=== PATIENT | female | born 1990 | race African-American/Black ===

== ENCOUNTER 2024-10-03 09:12 | Emergency (ER) | payer OTHER, SELFPAY ==
--- NOTE | ~2024-10-03 | XR_ITS ---
EXAMINATION: XR shoulder RT min 2V DATE: 10/03/2024 11:11 INDICATION: Right shoulder injury post fall TECHNIQUE: AP internally and externally rotated, AP oblique externally rotated and transscapular Y vi ews of the right shoulder were obtained. COMPARISON: None FINDINGS: Normal alignment. No fracture. Glenohumeral joint is normal. Acromioclavicular joint is normal. Smal l anterior subacromial spur. Soft tissues are unremarkable. Right lung volume is small with no airspa ce opacities, pleural effusion or pneumothorax. IMPRESSION: Small anterior subacromial spur. No acute osseous abnormality. Reviewed, dictated and finalized at location A.
--- OUTSIDE RECORDS SUMMARY | 2024-10-03 09:14 | XMS_ITS | Data Portability ---
Author Organization [facility], [id number] Address [address] [place] [address] Assessment No assessment recorded. Plan of Treatment Reminders Order Date Submit Date Provider Last Modified By Organization Details Last Modified Time Details Appointments None recorded. Lab hemoglobin (Hb), fingerstic k, blood 2016 017 slies In-House Results, For Internal Use Only, Do Not Delete/merge, [id number] 12:54:31 Referral None recorded. Procedures None recorded. Surgeries None recorded. Imaging US, transvagin al 2016 017 [email or web address] Not available 10:07:37 Medication Orders Provera 5 mg tablet 2016 017 INTERFACE [id number], [address] [place], [place], [id number], 11:54:37 Patient TargetsNo targets recorded. Patient InstructionsNo instructions recorded. Reason for Referral None Reported. Results Created Date Observation Date Name Description Value Unit Range Abnormal Flag Note LastModifiedBy Organization Detail LastModifiedTime 10/04/1910/03/2016 hemog lobin (Hb), finge rstic k, blood fingerstick hemoglobin 15.4 g/dL 12.0-1 5.0 Not Available In-House Results For Internal Use Only, Do Not Delete/merge, [id number] 10/03/2016 12:02:38 10/11/19 US, trans vagin al No observ ation record ed. slies Not Available 2016 19:32:36 Result Notes None recorded. Problems Name Problem SNOMED Code Status Onset Date Resolution Date Notes Provider Name and Address Organization Details Recorded Time Abnormal vaginal bleeding 076662939 Active 017 Leonie Kneer (TERMED) null, [facility] 7 11:45:57 Problem Notes None recorded. Procedures Surgical History Date Name Laterality Status Provider Name and Address Organization Details Recorded Time 5 Date of Last Pap Smear completed Leonie Galo (TERMED) [facility] 10/03/2016 11:46:33 3 Colposcopy vulva w/biopsy completed Leonieher Galo (TERMED) [facility] 10/03/2016 11:55:51 Imaging Results Imaging Date Name Status LastModified by Organization Details LastModified Time 10/10/2016 US, transvaginal completed slies Informat ion not available 10/11/2016 19:32:36 Procedure Notes None recorded. Medical Equipment None Reported. Allergies No known drug allergies Medications Name Sig Start Date Stop Date Status Note LastModified by Organization Details LastModified Time amoxicillin 500 mg capsule 10/03 completed Not Available Not Available Not Available medroxyprog esterone 10 mg tablet 10/03 completed Not Available Not Available Not Available fluconazole 150 mg tablet 10/03 completed Not Available Not Available Not Available hydrocodone 5 mg-acetamin ophen 325 mg tablet 10/03 completed Not Available Not Available Not Available medroxyprog esterone 5 mg tablet TK 1 T PO QD FOR 14 DAYS active Not Available Not Available No t Available hydrocodone 10 mg-acetamin ophen 325 mg tablet 10/03 completed Not Available Not Available Not Available amoxicillin 875 mg tablet 10/03 completed Not Available Not Available Not Available triamterene 37.5 mg-hydrochl orothiazide 25 mg tablet take 1 tablet by mouth once daily 10/03 completed Not Available Not Available Not Available ibuprofen 600 mg tablet 10/03 completed Not Available Not Available Not Available ondansetron 4 mg disintegrat ing tablet 10/03 completed Not Available Not Available Not Available naproxen 500 mg tablet 10/03 completed Not Available Not Available Not Available Cyclafem 1/35 (28) 1 mg-35 mcg tablet 10/03 completed Not Available Not Available Not Available Afluria [id number] (PF) 45 mcg(15 mcg x 3)/0.5 mL intramuscul ar syringe inject 0.5 millilite r intramusc ularly 10/03 completed Not Available Not Available Not Available Vitals Date Recorded Body weight Body height Body mass index (BMI) Heart rate Systolic blood pressure Diastolic blood pressure Provider Name and Address Organization Details Last Updated DateTime 7 466990. 53 g 167.64 cm 48.1 kg/m2 95 /min 156 mm[Hg] 101 mm[Hg] Leonie Galo (TERMED) [facility] 7 11:45:19 Date Recorded Body height Body weight Body mass index (BMI) Heart rate Systolic blood pressure Diastolic blood pressure Provider Name and Address Organization Details Last Updated DateTime 7 167.64 cm 832911. 12 g 48.3 kg/m2 85 /min 152 mm[Hg] 95 mm[Hg] Leonie Galo (TERMED) [facility] 7 10:36:56 Social History Question Answer Notes LastModified by Organizat ion Details LastModified Time Tobacco Smoking Status Never Smoker Leonie Galo (TERMED) null, [facility] 10/03/2016 11:48:22 What Is Your Level Of Alcohol Consumption? Occasional Information not available 10/03/2016 Are You Blind Or Do You Have Difficulty Seeing? No Information not available 10/04/2016 Is Blood Transfusion Acceptable In An Emergency? Yes Information not available 10/03/2016 What Is Your Level Of Caffeine Consumption? Moderate Information not available 10/03/2016 Are You Currently Employed? Yes [employer] [facility] Information not available 10/03/2016 Are You Deaf Or Do You Have Serious Difficulty Hearing? No Information not available 10/04/2016 What Type Of Diet Are You Following? REGULAR Information not available 10/03/2016 Which Illicit Or Recreational Drugs Have You Used? 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 0 Information not available 10/04/2016 How Many Years Have You Used Illicit Or Recreational Drugs? 0 Information not available 10/04/2016 History Of Domestic Violence No Information not available 10/03/2016 Country Of [facility] Information not available 10/03/2016 Ethnic Background Information not available 10/03/2016 Marital Status Single Informatio n not available 10/03/2016 Performs Monthly Self-breast Exam? Yes Information not available 10/03/2016 Do You Use Protection During Sex? Always Information not available 10/03/2016 Seat Belts Used Routinely Yes Information not available 10/03/2016 Are You Sexually Active? Yes Information not available 10/03/2016 Number Of Sexual Partners 4 Information not available 10/04/2016 Are You Passively Exposed To Smoke? No Information not available 10/03/2016 How Much Tobacco Do You Smoke? No Information not available 10/04/2016 General Stress Level High Information not available 10/03/2016 How Many Years Have You Smoked Tobacco? 0 Information not available 10/04/2016 Do You Have Symptoms Associated With Zika Virus (fever, Rash, Joint Pain, Or Conjunctivitis) ? No Information not available 10/03/2016 Have You Recently (within The Last 12 Weeks, Or During A Current ) Traveled To Or Lived In A Zika-affected Area? No Information not available 10/03/2016 Sex: Unknown Functional Status Question Answer Note LastModified by Organizat ion Details LastModified Time Do you have difficulty walking or climbing stairs? No Information not available 10/04/2016 Urinary incontinence assessment performed? Yes Information not available 10/03/2016 Do you have difficulty doing errands alone? No Information not available 10/04/2016 Do you have difficulty dressing or bathing? No Information not available 10/04/2016 What is your exercise level? Occasional Information not available 10/03/2016 Mental Status Question Answer Note LastModified by Organization D etails LastModified Time Do you have difficulty concentrating, remembering or making decisions? No Information no t available 10/04/2016 Family History Relationship Description Onset Age of this Age Resolved Age Notes LastModified by Organization Details LastModified Time Father Hypertensive disorder hkneer Not available 2016 11:48:03 Father Myocardial infarction hkneer Not available 10/03 11:48:15 Father Hypercholest erolemia mroethling Not available 10/04 10:00:00 Mother Hypertensive disorder hkneer Not available 2016 11:48:03 Mother Myocardial infarction hkneer Not available 10/03 11:48:15 Mother Diabetes mellitus mroethling Not available 10/04 09:59:29 Mother Hypercholest erolemia mroethling Not available 10/04 10:00:00 Sister Disorder of thyroid gland mroethling Not available 10/04 09:59:38 Sister Endometrial carcinoma mroethling Not available 10/04 09:59:48 Medical History Condition Response Psych- Depression Y Weight Management/Obesity Y Neurology- Headaches/Migraines Y Cardiology- High Blood Pressure Y Gynecological History Statement/Question Response HPV Vaccine Completed History of Sexually Transmitted Infectio n N Date of LMP 08/23/2016 History of Dysmenorrhea N Age at Menarche: 9 History of Cervical Dysplasia N Sexually Active Y History of PCOS Y Total lifetime partners Less than 5 History of Recurrent Ovarian Cysts N Date of Last Pap Smear 12/25/2014 Sexual Orientation Heterosexual Current Control Method None History of Abnormal PAP Y History of Endometriosis N History of Fibroids N Obstetrics History GPAL:G 0 P 0 0 0 0 Immunizations Vaccine Type Date Status Note Provider Nam e and Address Organization Details Recorded Time Influenza, split virus, trivalent, preservative 6 completed Leonie Galo (TERMED) null, [facility] 10/03/2016 11:45:37 Tdap 6 completed Sandra Barbosa (TERMED) [facility] 10/04/2016 09:52:18 HPV, unspecified formulation 9 completed Sandra Barbosa (TERMED) [facility] 10/04/2016 09:52:31 Past Encounters Encounter ID Performer Location Encounter Start Date Encounter Closed Date Diagnosis/Indication Diagnosis SNOMED-CT Code Diagnosis ICD10 Code Diagnosis Note [id number] VALERY PALOMINO MD [id number] [address] 10/03/2016 11:39:03 10/03/2016 13:14:07 Body mass index 40+ - severely obese 219616352 Z68.42 Abnormal v aginal bleeding 339973470 N93.9 abnormal uterine bleeding. probably anovulatio n. she has just finished her provera. (she stopped bleeding only 3 days while on provera) she is scheduled for u/s in 1 week. will see if she withdraws to provera. hgb stable. will make decision about bx, more provera etc at u/s next week [id number] [id number] [address] [place] [address] 10/10/2016 10:03:00 10/10/2016 12:11:45 Abnormal uterine bleeding 2435028804 9100 N93.9 probable pcod. has irregular periods, hirsutism, u/s changes. she has tried ocp's before. will have her take provera 5mg for 14 days, starting the 12 th day of her cycle for the next few months. will place on oc's if she requests Health Concerns Section Related Observation LastModified by Organization Detai ls LastModified Time None Recorded Concern Status LastModified by Organization Details LastModified Time None Recorded Advance Directives Directive None Recorded Payers Insurance Date Sequence Insurance Name Policy Number Policy Tavera Covered Member ID Tavera Member ID Guarantor Name 06/19/2018 1 [employer] ([employer]) [id number] Jasmin Moody [id number] Jasmin Moody Notes Date Note Type Note Provider Name and Address Organization Details Recorded Time 10/03/2016 text/html Goals lose weight. 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 began bleeding in july and throughout august. has gone several months without bleeding before VALERY PALOMINO MD [address] [place] [address],[address], [place], [address], [facility] 10/03/2016 12:54:38 10/10/2016 text/html fu for abnormal uterine bleeding VALERY PALOMINO MD [address] [place] [address],[address], [place], [address], [facility] [place] [facility] 10/10/2016 11:54:37 OBGyn Episode No OBEpisode recorded.
[2024-10-03 09:15] VITALS: BP 152/92; PULSE 101; RESP 16; TEMP 36.9; O2SAT 100
--- OUTSIDE RECORDS SUMMARY | 2024-10-03 09:15 | XMS_ITS | Clinical Summary ---
Author Organization [facility] Address [address] [address] Care Team Providers Care Machines Technician Name Role Phone Unavailable Primary Care Provider Unavailabl e Source Comments [facility],non-owned Affiliates and Associated Physician Practices is amultiple site organization consisting of ambulatory clinics and hospital sitesin [place], [place], [place] and [place]. This disclosure is being madepursuant to the Care Everywhere program and may not contain all information available regarding this patient. Last updated 18.[facility] Encounters Date Type Department Care Team Description 08/18/2024 Telephone [facility] Maternal [facility] [address] [place] [address] Suzette Villanueva Appointment from Last 3 Months Social History Tobacco Use Types Packs/Day Years Used Date Smoking Tobacco: Never Assessed Comments Unknown Sex and Gender Information Value Date Recorded Sex Assigned at Not on file Legal Sex Female 10:54 AM CDT Gender Identity Not on file Sexual Orientation Not on file Plan of Treatment Health Maintenance Due Date Last Done Comments PAP SMEAR 1988 HIV SCREENING 07/26/2003 HEPATITIS C SCREENING 07/21/2006 DTAP/TDAP/TD VACCINES (1 - Tdap) 07/26/2007 HEPATITIS B VACCINE (1 of 3 - 19+ 3-dose series) 07/26/2007 COVID-19 VACCINE ( - 2023-2 5 season) 2024 DEPRESSION SCREENING 05/27/2024 INFLUENZA VACCINE (Season Ended) 2025 ZOSTER VACCINE (1 of 2) 2038 HIB VACCINE Aged Out No longer eligi ble based on patient's age to complete this topic HPV VACCINE Aged Out No longer eligi ble based on patient's age to complete this topic MENINGOCOCCAL (Group B) VACC INE SHARED DECISION-MAKING Aged Out No longer eligibl e based on patient's age to complete this topic MENINGOCOCCAL GROUPS A/C/Y/W VACCINE Aged Out No longer eligible b ased on patient's age to complete this topic PNEUMOCOCCAL VACCINE Aged Out No long er eligible based on patient's age to complete this topic Insurance [employer]
--- OUTSIDE RECORDS SUMMARY | 2024-10-03 09:15 | XMS_ITS | Data Portability ---
Author Organization [facility] EMMA Fajardo SHELDON CLOSED Address [address] [facility] [address] [place] [address] Assessment No assessment recorded. Plan of Treatment Reminders Order Date Submit Date Provider Last Modified By Organization Details Last Modified Time Details Appointments None recorded. Lab CT + NG RNA, PCR, unspecifie d specimen 2020 021 [facility], [address] [place] [address], [id number], 1 13:20:56 HIV (1+2) Ab screen, serum 2020 021 [facility], [address] [place] [address], [id number], 13:35:18 hepatitis C Ab, serum 2020 021 [facility], [address] [place] [address], [id number], 08:29:18 hsv (1+2) Ab, serum 2020 021 [facility], [address] [place] [address], [id number], 1 15:11:12 RPR (rapid plasma reagin), serum 2020 021 [facility], [address] [place] [address], [id number], 1 17:40:47 HBsAg (hepatitis B surface Ag), serum 2020 021 [facility], [address] [place] [address], [id number], 1 08:29:20 magnesium, QN, serum or plasma 2020 021 [facility], [address] [place] [address], [id number], 1 20:15:15 CBC w/ auto diff 2020 021 [facility], [address] [place] [address], [id number], 20:24:12 CMP, serum or plasma 2020 021 [facility], [address] [place] [address], [id number], 1 20:15:16 iron, serum 2020 021 [facility], [address] [place] [address], [id number], 1 20:15:14 vitamin D, 25-hydroxy , total, serum 2020 021 [facility], [address] [place] [address], [id number], 1 08:29:21 urinalysis , dipstick 2019 020 [facility], [address] [place], [address], 0 15:23:52 microalbum in, urine 2019 020 [facility], [address] [facility] [place], [address], 0 15:23:52 vitamin D, 25-hydroxy , total, serum 2019 [facility], [address] [place] [address], [id number], 0 20:30:26 CMP, serum or plasma 2019 [facility], [address] [place] [address], [id number], 0 20:13:06 lipid panel, serum 2019 [facility], [address] [place] [address], [id number], 0 20:13:05 CBC w/ auto diff 2019 [facility], [address] [place] [address], [id number], 0 20:32:46 TSH, serum or plasma 2019 [facility], [address] [place] [address], [id number], 0 20:27:48 Referral physical therapist referral 2020 [email or web address] Not available 08:39:36 Procedures None recorded. Surgeries None recorded. Imaging None recorded. Medication Orders citalopram 20 mg tablet 2020 [facility], [address], [address], [place], [place], [id number], 1 16:10:19 ergocalcif terrence (vitamin D2) 1,250 mcg (50,000 unit) capsule 2020 [facility], [address], [address], [place], [place], [id number], 1 16:10:24 metoprolol tartrate 25 mg tablet 2020 021 [facility], [address], [address], [place], [place], [id number], 1 16:10:20 cyclobenza velvet 10 mg tablet 2020 021 [facility], [address], [address], [place], [place], [id number], 1 16:10:23 Medrol (Otf) 4 mg tablets in a dose pack 2020 021 [facility], [address], [address], [place], [place], [id number], 1 16:10:21 ProAir HFA 90 mcg/actuat ion aerosol inhaler [address] [id number], [address], [id number], 1 15:55:33 Celexa 20 mg tablet 2019 020 [id number], [address] [place], [place], [id number], 0 14:37:06 triamcinol one acetonide 0.5 % topical cream [email or web address] [id number], [address] [place], [place], [id number], 0 09:43:57 Celexa 20 mg tablet 2019 020 [id number], [address], [place], [id number], 0 15:24:19 Celexa 20 mg tablet 2019 020 [facility] #[id number], [address] , [place], [place], [id number], 0 15:32:52 Patient TargetsNo targets recorded. Patient Instructions Encounter Date Encounter Id Patient Instructions Last Modified By Organization Details Last Modified Time 03/03/2020 [id number] body mass index: care instructions emillay Not available 03/03/2020 15:32:23 body mass index information emillay Not available 03/03/2020 15:32:23 BMI - ADULT emillay Not available 12/2019 15:32:24 advised to lose weight emillay Not available 03/03/2020 15:32:23 dash diet: care instructions emillay Not available 03/03/2020 15:32:23 high blood pressure: care instructions emillay Not available 03/03/2020 15:32:23 learning about high blood pressure emillay Not available 03/03/2020 15:32:23 05/04/2020 [id number] advised patient and members of his/her household to isolate for 10 days past positive test. contact the office if he/she begins to have worsening symptoms of COVID-19 such as shortness of air, high fever, chest pain Advised: 325mg ASA qd x 4 weeks pepcid 20mg qd x 4 weeks zinc 100mg qd x 4 weeks vitamin c 500mg bid x 4 weeks iron 65mg qd x 4 weeks tylenol for fever, aches prn obtain pulse ox and begin watching saturation at home. this should be above 90 at all times. if below 90 pleaes call right away or go to ER. emillay Not available 05/04/2020 14:35:42 spent 25 minutes with patient today with more than 50% of the encounter spent in counseling regarding information documented in my assessment and plan above. emillay Not available 05/04/2020 14:36:47 Reason for Referral Physical Therapist Referral for Left-sided piriformis syndrome Referring Physician: Milly Louis, Pain Management, Encounter Date: 09/27/2020 Results Created Date Observation Date Name Description Value Unit Range Abnormal Flag Note LastModifiedBy Organization Detail LastModifiedTime 03/03/20 20 03/03/2020 lipid panel , serum HDL cholesterol 37 mg/dL 66-242 low Not Available [facility] [address] [place] [address], [id number], 03/03/2020 20:13:05 03/03/20 20 03/03/2020 lipid panel , serum triglyceride s 94 mg/dL 0-149 normal TRIGL YCERI DE RANGE S JONATAN L: < 150 BORDE RLINE HIGH: 150 - 199 HIGH: 200 - 499 VERY HIGH: > OR = 500 Not Available [facility] [address] [place] [address], [id number], 03/03/2020 20:13:05 03/03/20 20 03/03/2020 lipid panel , serum cholesterol 160 mg/dL 0-199 normal CRISTINA STERO L (TOTA L) RANGE S AUNG ABLE: < 200 BORDE RLINE : 200 - 239 HIGHE R RISK: > 239 Not Available [facility] [address] [place] [address], [id number], 03/03/2020 20:13:05 03/03/20 20 03/03/2020 lipid panel , serum LDL cholesterol 104 mg/dL _(shyla c) 0-99 high LDL CRISTINA STERO L RANGE S OPTIM AL: < 100 NEAR/ ABOVE OPTIM AL: 100 - 129 BORDE RLINE HIGH: 130 - 159 HIGH: 160 - 189 VERY HIGH: > OR = 190 Not Available [facility] [address] [place] [address], [id number], 03/03/2020 20:13:05 03/03/2003/03/2020 CMP, serum or plasm a glucose 88 mg/dL 74-100 normal Not Available [facility] [address] [place] [address], [id number], 03/03/2020 20:13:06 03/03/20 20 03/03/2020 CMP, serum or plasm a blood urea nitrogen 11 mg/dL 6-20 normal Not Available [facility] [address] [place] [address], [address], 03/03/2020 20:13:06 03/03/20 20 03/03/2020 CMP, serum or plasm a creatinine 0.91 mg/dL 0.50-0 .95 normal Not Available [facility] [address] [place] [address], [address], 03/03/2020 20:13:06 03/03/20 20 03/03/2020 CMP, serum or plasm a BUN/creatini ne ratio 12 (calc ) 10-20 normal Not Available [facility] [address] [place] [address], [address], 03/03/2020 20:13:06 03/03/20 20 03/03/2020 CMP, serum or plasm a sodium 138 mmol/ L 136-14 5 normal Not Available [facility] [address] [place] [address], [address], 03/03/2020 20:13:06 03/03/20 20 03/03/2020 CMP, serum or plasm a potassium 4.3 mmol/ L 3.4-5. 0 normal Not Available [facility] [address] [place] [address], [address], 03/03/2020 20:13:06 03/03/20 20 03/03/2020 CMP, serum or plasm a chloride 104 mmol/ L 98-107 normal Not Available [facility] [address] [place] [address], [address], 03/03/2020 20:13:06 03/03/20 20 03/03/2020 CMP, serum or plasm a carbon dioxide 22 mmol/ L 20-32 normal Not Available [facility] [address] [place] [address], [address], 03/03/2020 20:13:06 03/03/20 20 03/03/2020 CMP, serum or plasm a anion gap 12 (calc ) 7-25 normal Not Available [facility] [address] [place] [address], [address], 03/03/2020 20:13:06 03/03/20 20 03/03/2020 CMP, serum or plasm a calcium 10.0 mg/dL 8.6-10 .2 normal Not Available [facility] [address] [place] [address], [address], 03/03/2020 20:13:06 03/03/20 20 03/03/2020 CMP, serum or plasm a total protein 8.1 g/dL 6.4-8. 3 normal Not Available [facility] [address] [place] [address], [address], 03/03/2020 20:13:06 03/03/20 20 03/03/2020 CMP, serum or plasm a albumin 4.7 g/dL 3.5-5. 2 normal Not Available [facility] [address] [place] [address], [address], 03/03/2020 20:13:06 03/03/20 20 03/03/2020 CMP, serum or plasm a globulin 3.4 g/dL_ (calc ) 1.5-4. 5 normal Not Available [facility] [address] [place] [address], [address], 03/03/2020 20:13:06 03/03/20 20 03/03/2020 CMP, serum or plasm a albumin/glob ulin ratio 1.4 (calc ) 1.1-2. 5 normal Not Available [facility] [address] [place] [address], [address], 03/03/2020 20:13:06 03/03/20 20 03/03/2020 CMP, serum or plasm a bilirubin, total 0.7 mg/dL 0.1-1. 2 normal Not Available [facility] [address] [place] [address], [address], 03/03/2020 20:13:06 03/03/20 20 03/03/2020 CMP, serum or plasm a alkaline phosphatase 52 U/L 35-105 normal Not Available [facility] [address] [place] [address], [address], 03/03/2020 20:13:06 03/03/20 20 03/03/2020 CMP, serum or plasm a AST 18 U/L 0-32 normal Not Available [facility] [address] [place] [address], [address], 03/03/2020 20:13:06 03/03/20 20 03/03/2020 CMP, serum or plasm a ALT 17 U/L 0-33 normal Not Available [facility] [address] [place] [address], [address], 03/03/2020 20:13:06 03/03/20 20 03/03/2020 CMP, serum or plasm a GFR 97 >= 60 normal Not Available [facility] [address] [place] [address], [address], 03/03/2020 20:13:06 03/03/20 20 03/03/2020 CMP, serum or plasm a GFR non- 84 >= 60 normal NOT E NEW calcu latio n for GFR is based on the Natio nal Kidne y Found ation CKD-E PI equat ion and allow s for repor ting GFR value s great er than 60 mL/mi n/1.7 3 m2. This calcu latio n has not been valid ated for patie nts less than 18 yrs., pregn ant women and Hispa nics. Chron ic kidne y disea se is defin ed as kidne y damag e or GFR less than 60 mL/mi n/1.7 3 m2 for 3 month s or longe r. Not Available [facility] [address] [place] [address], [address], 03/03/2020 20:13:06 03/03/20 20 03/03/2020 TSH, serum or plasm a TSH 1.540 uIU/m L 0.290- 5.500 normal Not Available [facility] [address] [place] [address], [address], 03/03/2020 20:27:48 1003/03/2020 vitam in D, 25-hy droxy , total , serum vitamin D 25-oh, total 17 NG/mL >=30 NG/mL abnormal Not Available [facility] [address] [place] [address], [address], 03/03/2020 20:30:26 03/03/20 20 03/03/2020 CBC w/ auto diff white blood cells 8.6 K/uL 3.8-10 .8 normal Not Available [facility] [address] [place] [address], [address], 03/03/2020 20:32:46 03/03/20 20 03/03/2020 CBC w/ auto diff red blood cells 4.78 M/uL 3.80-5 .20 normal Not Available [facility] [address] [place] [address], [address], 03/03/2020 20:32:46 03/03/20 20 03/03/2020 CBC w/ auto diff hemoglobin 13.3 g/dL 12.0-1 6.0 normal Not Available [facility] [address] [place] [address], [address], 03/03/2020 20:32:46 03/03/20 20 03/03/2020 CBC w/ auto diff hematocrit 40.1 % 35.0-4 7.0 normal Not Available [facility] [address] [place] [address], [address], 03/03/2020 20:32:46 03/03/2003/03/2020 CBC w/ auto diff MCV 84 fL 80-100 normal Not Available [facility] [address] [place] [address], [address], 03/03/2020 20:32:46 03/03/20 20 03/03/2020 CBC w/ auto diff MCH 28 pg 26-35 normal Not Available [facility] [address] [place] [address], [address], 03/03/2020 20:32:46 03/03/20 20 03/03/2020 CBC w/ auto diff MCHC 33 g/dL 32-36 normal Not Available [facility] [address] [place] [address], [address], 03/03/2020 20:32:46 03/03/20 20 03/03/2020 CBC w/ auto diff RDW 12.5 % 11.0-1 5.0 normal Not Available [facility] [address] [place] [address], [address], 03/03/2020 20:32:46 03/03/20 20 03/03/2020 CBC w/ auto diff MPV 7.7 fL 6.2-10 .5 normal Not Available [facility] [address] [place] [address], [address], 03/03/2020 20:32:46 03/03/20 20 03/03/2020 CBC w/ auto diff platelet count 350 K/uL 130-40 0 normal Not Available [facility] [address] [place] [address], [address], 03/03/2020 20:32:46 03/03/20 20 03/03/2020 CBC w/ auto diff neutrophil,a bsolute 5.7 K/uL 1.6-8. 4 normal Not Available [facility] [address] [place] [address], [address], 03/03/2020 20:32:46 03/03/20 20 03/03/2020 CBC w/ auto diff lymphocyte,a bsolute 2.4 K/uL 0.4-5. 1 normal Not Available [facility] [address] [place] [address], [address], 03/03/2020 20:32:46 03/03/20 20 03/03/2020 CBC w/ auto diff monocyte,abs olute 0.4 K/uL 0.0-1. 2 normal Not Available [facility] [address] [place] [address], [address], 03/03/2020 20:32:46 03/03/20 20 03/03/2020 CBC w/ auto diff eosinophil,a bsolute 0.0 K/uL 0.0-0. 8 normal Not Available [facility] [address] [place] [address], [address], 03/03/2020 20:32:46 03/03/20 20 03/03/2020 CBC w/ auto diff basophil,abs olute 0.1 K/uL 0.0-0. 3 normal Not Available [facility] [address] [place] [address], [address], 03/03/2020 20:32:46 03/03/20 20 03/03/2020 CBC w/ auto diff % neutrophils 66.0 % 42.0-7 8.0 normal Not Available [facility] [address] [place] [address], [address], 03/03/2020 20:32:46 03/03/20 20 03/03/2020 CBC w/ auto diff % lymphocytes 27.5 % 11.0-4 7.0 normal Not Available [facility] [address] [place] [address], [address], 03/03/2020 20:32:46 03/03/20 20 03/03/2020 CBC w/ auto diff % monocytes 5.0 % 0.0-11 .0 normal Not Available [facility] [address] [place] [address], [address], 03/03/2020 20:32:46 03/03/20 20 03/03/2020 CBC w/ auto diff % eosinophils 0.4 % 0.0-7. 0 normal Not Available [facility] [address] [place] [address], [address], 03/03/2020 20:32:46 03/03/20 20 03/03/2020 CBC w/ auto diff % basophils 1.1 % 0.0-3. 0 normal Not Available [facility] [address] [place] [address], [address], 03/03/2020 20:32:46 03/03/20 20 03/03/2020 CBC w/ auto diff nucleated red cells 0.0 % 0.0-0. 9 normal Not Available [facility] [address] [place] [address], [address], 03/03/2020 20:32:46 03/03/20 20 03/03/2020 CBC w/ auto diff nucleated RBCs, absolute 0.00 K/uL not estab. normal Not Available [facility] [address] [place], [address], 03/03/2020 20:32:46 04/05/20 20 04/05/2020 micro album in, urine Unknown Analyte 50 H Not Available [address], [place], [address], 04/05/2020 15:04:53 04/05/20 20 04/05/2020 micro album in, urine Unknown Analyte mg/L Not Available [address], [place], [address], 04/05/2020 15:04:53 04/05/20 20 04/05/2020 micro album in, urine Unknown Analyte Negati ve-20 mg/L Not Available [address], [place], [address], 04/05/2020 15:04:53 04/05/20 20 04/05/2020 urina lysis , dipst ick Unknown Analyte Yellow Not Available [address], [place], [address], 04/05/2020 15:04:38 04/05/20 20 04/05/2020 urina lysis , dipst ick Unknown Analyte Clear Not Available [address], [place], [address], 04/05/2020 15:04:38 04/05/20 20 04/05/2020 urina lysis , dipst ick Unknown Analyte 1.020 Not Available [address], [place], [address], 04/05/2020 15:04:38 04/05/20 20 04/05/2020 urina lysis , dipst ick Unknown Analyte 5.0 Not Available [address], [place], [address], 04/05/2020 15:04:38 04/05/20 20 04/05/2020 urina lysis , dipst ick Unknown Analyte 500 Sabina/ul (++) Not Available [address], [place], [address], 04/05/2020 15:04:38 04/05/20 20 04/05/2020 urina lysis , dipst ick Unknown Analyte Negati ve Not Available [address], [place], [address], 04/05/2020 15:04:38 04/05/20 20 04/05/2020 urina lysis , dipst ick Unknown Analyte Trace Not Available [address], [place], [address], 04/05/2020 15:04:38 04/05/20 20 04/05/2020 urina lysis , dipst ick Unknown Analyte Normal Not Available [address], [place], [address], 04/05/2020 15:04:38 04/05/20 20 04/05/2020 urina lysis , dipst ick Unknown Analyte Negati ve Not Available [address], [place], [address], 04/05/2020 15:04:38 04/05/20 20 04/05/2020 urina lysis , dipst ick Unknown Analyte Normal Not Available [address], [place], [address], 04/05/2020 15:04:38 04/05/20 20 04/05/2020 urina lysis , dipst ick Unknown Analyte 1 mg/dl (+) Not Available [address], [place], [address], 04/05/2020 15:04:38 04/05/20 20 04/05/2020 urina lysis , dipst ick Unknown Analyte 250 Greg/ul Not Available [address] , [place], [address], 04/05/2020 15:04:38 04/05/20 20 04/05/2020 urina lysis , dipst ick Unknown Analyte Clean Catch Not Available [address], [place], [address], 04/05/2020 15:04:38 04/05/20 20 04/05/2020 urina lysis , dipst ick Unknown Analyte Automa taina Not Available [address], [place], [address], 04/05/2020 15:04:38 09/28/19 21 09/27/2020 iron, serum iron 59 ug/dL 37-145 normal Not Available [facility] [address] [place] [address], [address], 09/27/2020 20:15:14 09/28/19 21 09/27/2020 magne sium, QN, serum or plasm a magnesium 1.9 mg/dL 1.6-2. 6 normal Not Available [facility] [address] [place] [address], [address], 09/27/2020 20:15:15 09/28/19 21 09/27/2020 CMP, serum or plasm a glucose 95 mg/dL 74-100 normal Not Available [facility] [address] [place] [address], [address], 09/27/2020 20:15:16 09/28/19 21 09/27/2020 CMP, serum or plasm a blood urea nitrogen 11 mg/dL 6-20 normal Not Available [facility] [address] [place] [address], [address], 09/27/2020 20:15:16 09/28/19 21 09/27/2020 CMP, serum or plasm a creatinine 0.86 mg/dL 0.50-0 .90 normal Not Available [facility] [address] [place] [address], [address], 09/27/2020 20:15:16 09/28/19 21 09/27/2020 CMP, serum or plasm a BUN/creatini ne ratio 13 (calc ) 10-20 normal Not Available [facility] [address] [place] [address], [address], 09/27/2020 20:15:16 09/28/19 21 09/27/2020 CMP, serum or plasm a sodium 140 mmol/ L 136-14 5 normal Not Available [facility] [address] [place] [address], [address], 09/27/2020 20:15:16 09/28/19 21 09/27/2020 CMP, serum or plasm a potassium 4.2 mmol/ L 3.4-5. 0 normal Not Available [facility] [address] [place] [address], [address], 09/27/2020 20:15:16 09/28/19 21 09/27/2020 CMP, serum or plasm a chloride 104 mmol/ L 98-107 normal Not Available [facility] [address] [place] [address], [address], 09/27/2020 20:15:16 09/28/19 21 09/27/2020 CMP, serum or plasm a carbon dioxide 26 mmol/ L 22-29 normal Not Available [facility] [address] [place] [address], [address], 09/27/2020 20:15:16 09/28/19 21 09/27/2020 CMP, serum or plasm a anion gap 10 (calc ) 7-25 normal Not Available [facility] [address] [place] [address], [address], 09/27/2020 20:15:16 09/28/19 21 09/27/2020 CMP, serum or plasm a calcium 9.4 mg/dL 8.6-10 .2 normal Not Available [facility] [address] [place] [address], [address], 09/27/2020 20:15:16 09/28/19 21 09/27/2020 CMP, serum or plasm a total protein 7.8 g/dL 6.4-8. 3 normal Not Available [facility] [address] [place] [address], [address], 09/27/2020 20:15:16 09/28/19 21 09/27/2020 CMP, serum or plasm a albumin 4.6 g/dL 3.5-5. 2 normal Not Available [facility] [address] [place] [address], [address], 09/27/2020 20:15:16 09/28/19 21 09/27/2020 CMP, serum or plasm a globulin 3.2 g/dL_ (calc ) 1.5-4. 5 normal Not Available [facility] [address] [place] [address], [address], 09/27/2020 20:15:16 09/28/19 21 09/27/2020 CMP, serum or plasm a albumin/glob ulin ratio 1.4 (calc ) 1.1-2. 5 normal Not Available [facility] [address] [place] [address], [address], 09/27/2020 20:15:16 09/28/19 21 09/27/2020 CMP, serum or plasm a bilirubin, total 0.4 mg/dL 0.1-1. 2 normal Not Available [facility] [address] [place] [address], [address], 09/27/2020 20:15:16 09/28/19 21 09/27/2020 CMP, serum or plasm a alkaline phosphatase 60 U/L 35-104 normal Not Available [facility] [address] [place] [address], [address], 09/27/2020 20:15:16 09/28/19 21 09/27/2020 CMP, serum or plasm a AST 25 U/L 0-32 normal Not Available [facility] [address] [place] [address], [address], 09/27/2020 20:15:16 09/28/19 21 09/27/2020 CMP, serum or plasm a ALT 24 U/L 0-33 normal Not Available [facility] [address] [place] [address], [address], 09/27/2020 20:15:16 09/28/19 21 09/27/2020 CMP, serum or plasm a GFR 103 >= 60 normal Not Available [facility] [address] [place] [address], [address], 09/27/2020 20:15:16 09/28/1909/27/2020 CMP, serum or plasm a GFR non- 89 >= 60 normal NOT E Chron ic kidne y disea se is defin ed as kidne y damag e for more than 3 month s or a GFR less than 60 mL/mi n/1.7 3 m2 for great er than 3 month s. This calcu latio n has not been valid ated in pregn ant women . For pedia tric patie nts refer to [email or web address] :[email or web address] [email or web address] [email or web address] rg/pr ofess ional s/KDO QI/gf r_cal culat orPed Natio nal Kidne y Found ation Not Available [facility] [address] [place] [address], [phone], 09/27/2020 20:15:16 09/28/19 21 09/27/2020 CBC w/ auto diff white blood cells 7.5 K/uL 3.8-10 .8 normal Not Available [facility] [address] [place] [address], [phone], 09/27/2020 20:24:12 09/28/19 21 09/27/2020 CBC w/ auto diff red blood cells 4.66 M/uL 3.80-5 .20 normal Not Available [facility] [address] [place] [address], [phone], 09/27/2020 20:24:12 09/28/19 21 09/27/2020 CBC w/ auto diff hemoglobin 13.0 g/dL 12.0-1 6.0 normal Not Available [facility] [address] [place] [address], [phone], 09/27/2020 20:24:12 09/28/19 21 09/27/2020 CBC w/ auto diff hematocrit 38.6 % 35.0-4 7.0 normal Not Available [facility] [address] [place] [address], [address], 09/27/2020 20:24:12 09/28/19 21 09/27/2020 CBC w/ auto diff MCV 83 fL 80-100 normal Not Available [facility] [address] [place] [address], [phone], 09/27/2020 20:24:12 09/28/19 21 09/27/2020 CBC w/ auto diff MCH 28 pg 26-35 normal Not Available [facility] [address] [place] [address], [address], 09/27/2020 20:24:12 09/28/19 21 09/27/2020 CBC w/ auto diff MCHC 34 g/dL 32-36 normal Not Available [facility] [address] [place] [address], [address], 09/27/2020 20:24:12 09/28/19 21 09/27/2020 CBC w/ auto diff RDW 12.7 % 11.0-1 5.0 normal Not Available [facility] [address] [place] [address], [address], 09/27/2020 20:24:12 09/28/19 21 09/27/2020 CBC w/ auto diff MPV 7.3 fL 6.2-10 .5 normal Not Available [facility] [address] [place] [address], [address], 09/27/2020 20:24:12 09/28/19 21 09/27/2020 CBC w/ auto diff platelet count 360 K/uL 130-40 0 normal Not Available [facility] [address] [place] [address], [address], 09/27/2020 20:24:12 09/28/19 21 09/27/2020 CBC w/ auto diff neutrophil,a bsolute 5.3 K/uL 1.6-8. 4 normal Not Available [facility] [address] [place] [address], [address], 09/27/2020 20:24:12 09/28/19 21 09/27/2020 CBC w/ auto diff lymphocyte,a bsolute 1.7 K/uL 0.4-5. 1 normal Not Available [facility] [address] [place] [address], [address], 09/27/2020 20:24:12 09/28/19 21 09/27/2020 CBC w/ auto diff monocyte,abs olute 0.4 K/uL 0.0-1. 2 normal Not Available [facility] [address] [place] [address], [address], 09/27/2020 20:24:12 09/28/19 21 09/27/2020 CBC w/ auto diff eosinophil,a bsolute 0.1 K/uL 0.0-0. 8 normal Not Available [facility] [address] [place] [address], [address], 09/27/2020 20:24:12 09/28/19 21 09/27/2020 CBC w/ auto diff basophil,abs olute 0.0 K/uL 0.0-0. 3 normal Not Available [facility] [address] [place] [address], [address], 09/27/2020 20:24:12 09/28/19 21 09/27/2020 CBC w/ auto diff % neutrophils 70.3 % 42.0-7 8.0 normal Not Available [facility] [address] [place] [address], [address], 09/27/2020 20:24:12 09/28/19 21 09/27/2020 CBC w/ auto diff % lymphocytes 23.0 % 11.0-4 7.0 normal Not Available [facility] [address] [place] [address], [address], 09/27/2020 20:24:12 09/28/19 21 09/27/2020 CBC w/ auto diff % monocytes 5.5 % 0.0-11 .0 normal Not Available [facility] [address] [place] [address], [address], 09/27/2020 20:24:12 09/28/19 21 09/27/2020 CBC w/ auto diff % eosinophils 0.9 % 0.0-7. 0 normal Not Available [facility] [address] [place] [address], [address], 09/27/2020 20:24:12 09/28/19 21 09/27/2020 CBC w/ auto diff % basophils 0.3 % 0.0-3. 0 normal Not Available [facility] [address] [place] [address], [address], 09/27/2020 20:24:12 09/28/19 21 09/27/2020 CBC w/ auto diff nucleated red cells 0.0 % 0.0-0. 9 normal Not Available [facility] [address] [place] [address], [address], 09/27/2020 20:24:12 09/28/19 21 09/27/2020 CBC w/ auto diff nucleated RBCs, absolute 0.00 K/uL not estab. normal Not Available [facility] [address] [place] [address], [address], 09/27/2020 20:24:12 09/28/19 21 09/27/2020 hepat itis C Ab, serum hcab, reflex viral RNA qt Nonrea ctive non-re active normal Antib odies to HCV were not detec taina; does not exclu de the possi bilit y of expos ure to HCV. Not Available [facility] [address] [place] [address], [address], 09/28/2020 08:29:18 09/28/1909/27/2020 HBsAg (hepa titis B surfa ce Ag), serum hepatitis B surface Ag Nonrea ctive non-re active normal Not Available [facility] [address] [place] [address], [address], 09/28/2020 08:29:20 09/28/19 21 09/27/2020 vitam in D, 25-hy droxy , total , serum vitamin D 25-oh, total 25 NG/mL >=30 NG/mL abnormal Not Available [facility] [address] [place] [address], [address], 09/28/2020 08:29:21 09/28/19 21 09/28/2020 HIV (1+2) Ab scree n, serum HIV screen NON-RE ACTIVE non-re active normal HIV-1 antig en and HIV-1 /HIV- 2 antib odies were not detec taina. There is no labor atory evide nce of HIV infec tion. PLEAS E NOTE: This infor matio n has been discl osed to you from recor ds whose confi denti ality may be prote cted by state law. If your state requi res such prote ction , then the state law prohi bits you from ignacio holland any furth er discl osure of the infor matio n witho ut the speci fic writt en conse nt of the perso n to whom it perta ins, or as other lee permi tted by law. A gener al autho rizat ion for the relea se of medic al or other infor matio n is NOT suffi cient for this purpo se. For addit ional infor matio n pleas e refer to http: //[facility] catnoemy n.que stdia gnost ics.c om/fa q/FAQ 106 (This link is being provi ded for infor matio nal/ educa royal l purpo ses only. ) The perfo rmanc e of this assay has not been clini jessie valid ated in patie nts less than 2 years old. TEST PERFO RMED AT: [facility] [place] [address] [place], [place] [id number] BRIANNA Parra MD Not Available [facility] [address] [place], [address], 09/28/2020 13:35:18 09/28/19 21 09/28/2020 hsv (1+2) Ab, serum hsv 1 IgG 38.80 index high Not Available [facility] [address] [place], [address], 09/29/2020 15:01:23 09/28/19 21 09/28/2020 hsv (1+2) Ab, serum hsv 2 IgG <0.90 index normal Index Inter preta tion ----- ----- ----- ---- <0.90 Negat kunal 0.90- 1.09 Equiv ocal >1.09 Posit kunal This assay utili zes recom binan t type- speci fic antig ens to diffe renti ate HSV-1 from HSV-2 infec tions . A posit kunal resul t canno t disti nguis h betwe en recen t and past infec tion. If recen t HSV infec tion is suspe cted but the resul ts are negat kunal or equiv ocal, the assay shoul d be repea taina in 4-6 weeks . The perfo rmanc e mikala cteri stics of the assay have not been estab lishe d for pedia tric popul ation s, immun ocomp romis ed patie nts, or neona layla scree jewel. TEST PERFO RMED AT: [facility] [address] [place] [address] BRIANNA Parra MD Not Available [facility] [address] [place] [address], [address], 09/29/2020 15:01:23 09/28/19 21 09/29/2020 hsv (1+2) Ab, serum hsv 1 IgM NEGATI VE negati ve normal Not Available [facility] [address] [place] [address], [address], 09/29/2020 15:01:23 09/28/19 21 09/29/2020 hsv (1+2) Ab, serum hsv 2 IgM NEGATI VE negati ve normal The IFA proce dure for measu ring IgM antib odies to HSV 1 and HSV 2 detec ts both type- commo n and type- speci fic HSV antib odies . Thus, IgM react ivity to both HSV 1 and HSV 2 may repre sent cross -reac tive HSV antib odies rathe r than expos ure to both HSV 1 and HSV 2. This assay was devel oped and its perfo rmanc e mikala cteri stics have been deter mined by [facility]. Perfo rmanc e mikala cteri stics refer to the alon tical perfo rmanc e of the test. TEST PERFO RMED AT: [facility] [address] [place] [address] BRIANNA Parra MD Not Available [facility] [address] [place] [address], [address], 09/29/2020 15:01:23 09/28/19 21 09/28/2020 RPR (rapi d plasm a reagi n), serum RPR, reflex titer NON-RE ACTIVE non-re active normal TEST PERFO RMED AT: [facility] [place] [address] [place] [address] BRIANNA Parra MD Not Available [facility] [address] [place] [address], [address], 09/28/2020 17:40:47 09/28/19 21 09/29/2020 CT + NG RNA, PCR, unspe cifie d speci men chlamydia trachomatis NOT DETECT ED not detect ed normal Not Available [facility] [address] [place] [address], [address], 09/29/2020 13:20:56 09/28/19 21 09/29/2020 CT + NG RNA, PCR, unspe cifie d speci men N. gonorrhoeae NOT DETECT ED not detect ed normal Not Available [facility] [address] [place] [address], [address], 09/29/2020 13:20:56 09/28/19 21 09/29/2020 CT + NG RNA, PCR, unspe cifie d speci men comment SEE BELOW normal The alon tical perfo rmanc e mikala cteri stics of this assay , when used to test SureP ath(T M) speci mens have been deter mined by [facility]. The modif icati ons have not been clear ed or appro tawana by the FDA. This assay has been valid ated pursu ant to the CLIA regul ation s and is used for clini shyla purpo ses. For addit ional infor leander hogan e refer to https ://ed ucati on.qu anastasiya Sassors. com/f aq/FA Q154 (This link is being provi ded for infor richard de leon/ [place] page only. ) TEST PERFO RMED AT: [facility] [address] [facility] [place] [address] BRIANNA Parra MD Not Available [facility] [address] [place] [address], [address], 09/29/2020 13:20:56 01/03/20 21 01/02/2021 VITAM IN D 25-OH vitamin D 25-oh, total 24 NG/mL >=30 NG/mL abnormal Not Available [facility] [address] [place] [address], [address], 01/02/2021 20:35:03 Result Notes None recorded. Problems Name Problem SNOMED Code Status Onset Date Resolution Date Notes Provider Name and Address Organization Details Recorded Time Vitamin D deficiency 73719273 Active 021 MILLY LOUIS PA-C [address] [place] [address], [address], [facility] 15:53:30 Mixed anxiety and depressive disorder 131396345 Active 021 MILLY LOUIS PA-C [address] [place] [address], [address], [facility] 15:53:33 Polycystic ovary syndrome 234592547 Active 021 MILLY LOUIS PA-C [address] [place] [address], [address], [facility] 15:53:40 Problem Notes None recorded. Procedures Surgical History Date Name Laterality Status Provider Name and Address Organization Details Recorded Time [place] Teeth Extraction completed Little Lunajerald [facility] 03/03/2020 15:45:17 Imaging Results None recorded. Procedure Notes None recorded. Medical Equipment None Reported. Allergies Allergen ID Allergen Name Allergen Category Reaction Reaction Severity Criticality Documentation Date Start Date Code Code System Note Provider Name and Address Organization Details Recorded Time 440809 lisinopri l medicatio n angioedem a severe Not available 03/03/2020 12773 RxNorm MILLY LOUIS PA-C [address] [place], [address], [facility] 0 15:18:34 336420 Vaccine product containin g only Influenza virus antigen (medicina l product) medicatio n Not available Not available Not available 05/11/2020 39731 61864 105 SNOMED faint ing, diaph oresi s MILLY LOUIS PA-C [address] [place], [address], [facility] 2 14:21:17 Medications Name Sig Start Date Stop Date Status Note LastModified by Organization Details LastModified Time cyclobenz aprine 10 mg tablet Take 1 tablet 3 times a day by oral route. 2020 active Not Available Not Available Not Avai lable Multiple Vitamin capsule Daily active Duration : 30 days;Cirilo quency: daily;Me dication Descript ion: multivit erazo; Dosage:1 ; Route:or al; refills: 3; Quantity :100 capsule Not Available Not Available Not Available triamcino lone acetonide 0.5 % topical cream APPLY A THIN LAYER TO THE AFFECTED AREA(S) BY TOPICAL ROUTE 2 TIMES PER DAY for no longer than 2 weeks 05/04 completed Not Available Not Available Not Available Medrol (Otf) 4 mg tablets in a dose pack Take 1 dose pk by oral route. 2020 active Not Available Not Available Not Avai lable amlodipin e 5 mg tablet Daily 03/03 completed Frequenc y: daily;Me dication Descript ion: amlodipi ne; Route:or al; refills: 0 Not Available Not Available Not Available citalopra m 20 mg tablet TAKE 1 TABLET BY MOUTH EVERY DAY due appt [phone] active Not Available Not Available Not Avai lable Depo-Prov era 150 mg/mL intramusc ular suspensio n Inject 1 mL every 3 months by intramus cular route. 05/04 completed Not Available Not Available Not Available hydrochlo rothiazid e 12.5 mg capsule Daily 03/03 completed Duration : 10 days;Cirilo quency: daily;Me dication Descript ion: hydrochl orothiaz marizol; Route:or al; refills: 0; Quantity :30 Not Available Not Available Not Available ergocalci ferol (vitamin D2) 1,250 mcg (50,000 unit) capsule TAKE 1 CAPSULE BY MOUTH EVERY WEEK 2020 active Not Available Not Available Not Avai lable metoprolo l tartrate 25 mg tablet Take 1 tablet twice a day by oral route. 2020 active Not Available Not Available Not Avai lable vitamin B complex Daily 03/03 completed Frequenc y: daily;Me dication Descript ion: multivit erazo; refills: 0 Not Available Not Available Not Available ProAir HFA 90 mcg/actua tion aerosol inhaler Inhale 2 puffs every 4 hours by inhalati on route. 09/27 completed Not Available Not Available Not Available Vitamin D 2,000 unit capsule Take 2 capsules every day by oral route. active Not Available Not Available No t Available Vitals Date Recorded Body weight Heart rate Body mass index (BMI) Body height Systolic blood pressure Diastolic blood pressure Provider Name and Address Organization Details Last Updated DateTime 0 593642. 75 g 98 /min 44.9 kg/m2 172.72 cm 132 mm[Hg] 80 mm[Hg] [facility] 0 15:09:34 Date Recorded Body height Body mass index (BMI) Body weight Heart rate Systolic blood pressure Diastolic blood pressure Provider Name and Address Organization Details Last Updated DateTime 0 172.72 cm 45 kg/m2 259401. 34 g 96 /min 124 mm[Hg] 82 mm[Hg] [facility] 0 15:04:10 Date Recorded Body height Body mass index (BMI) Body weight Provider Name and Address Organization Details Last Updated DateTime 05/04/2020 172.72 cm 45 kg/m2 658893.34 g [facility] 05/04/2020 09:43:39 Date Recorded Body height Body mass index (BMI) Body weight Heart rate Systolic blood pressure Diastolic blood pressure Provider Name and Address Organization Details Last Updated DateTime 1 172.72 cm 47.1 kg/m2 212560. 63 g 100 /min 144 mm[Hg] 90 mm[Hg] Little Sarah [facility] 1 15:55:04 Social History Question Answer Notes LastModified by Organizat ion Details LastModified Time Tobacco Smoking Status Never Smoker Little Sarah [facility] 03/03/2020 15:10:51 Do You Have An Advance Directive? No [email or web address] Information not available 03/03/2020 What Is Your Level Of Alcohol Consumption? Moderate 2-3 X A Month [email or web address] Information not available 03/03/2020 What Is Your Level Of Caffeine Consumption? Moderate 4x Week Coffee/ Ennergy Drink Information not available 03/03/2020 How Much Tobacco Do You Chew? None [email or web address] Information not available 03/03/2020 Which Illicit Or Recreational Drugs Have You Used? None [email or web address] Information not available 03/03/2020 Do You Or Have You Ever Used E-cigarettes Or Vape? Never Used Electronic Cigarettes Information not available 03/03/2020 Live Alone Or With Others? Alone [email or web address] Information not available 03/03/2020 Marital Status Single [email or web address] Informatio n not available 03/03/2020 What Was The Date Of Your Most Recent Tobacco Screening? 09/27/2020 [email or web address] Information not available 09/27/2020 Do You Use Protection During Sex? No Information not available 03/03/2020 Seat Belts Used Routinely Yes [email or web address] Information not available 03/03/2020 Are You Sexually Active? Yes Depoprovera [email or web address] Information not available 03/03/2020 Do You Or Have You Ever Used Smokeless Tobacco? Never Used Smokeless Tobacco Information not available 03/03/2020 How Much Tobacco Do You Smoke? No [email or web address] Information not available 03/03/2020 How Many Years Have You Smoked Tobacco? 0 [email or web address] Information not available 03/03/2020 Sex: Unknown Functional Status Question Answer Note LastModified by Organization D etails LastModified Time Are you able to care for yourself? Yes [email or web address] Information not available 03/03/2020 What is your exercise level? Moderate [email or web address] Information not available 03/03/2020 Mental Status None recorded. Family History Relationship Description Onset Age of this Age Resolved Age Notes LastModified by Organization Details LastModified Time Unspecified Relation History of multiple allergies [email or web address] Not available 2019 15:38:20 Unspecified Relation Anemia iron defici ency [email or web address] Not available 03/03/2020 15:38:49 Unspecified Relation Anxiety Not available 020 15:38:59 Unspecified Relation Breast problem [email or web address] Not available 2019 15:39:14 Unspecified Relation Depressive disorder Not available 2019 15:42:13 Unspecified Relation Hypertensive disorder Not available 2019 15:43:20 Maternal Grandmother Malignant tumor of breast cousin s [email or web address] Not available 03/03/2020 15:40:02 Maternal Grandmother Diabetes mellitus [email or web address] Not available 2019 15:42:01 Maternal Grandmother Hyperlipidem ia [email or web address] Not available 2019 15:43:51 Paternal Grandmother Diabetes mellitus [email or web address] Not available 2019 15:42:01 Mother Diabetes mellitus [email or web address] Not available 2019 15:42:01 Mother Hyperlipidem ia [email or web address] Not available 2019 15:43:51 Paternal Grandfather 40s heart diseas e [email or web address] Not available 03/03/2020 15:43:06 Father Hyperlipidem ia [email or web address] Not available 2019 15:43:51 Maternal Grandfather Hyperlipidem ia [email or web address] Not available 2019 15:43:51 Sister Disorder of thyroid gland graves [email or web address] Not available 2019 15:44:14 Medical History Condition Response Coronary Artery Disease N Other N Gout N Atrial Fibrillation N Kidney Stones N Hyperthyroidism N Blood Transfusion N Hypothyroidism N Lung Disease N Depression Y COPD N Breast Problem N Difficulty Swallowing N Anxiety Disorder Y Meniere's disease N Muscle, Joint, or Bone Problems N Vision or Eye Problems N Arthritis N Infertility N Polyps N Blood Clot N Cancer N Stroke N Varicosities N Endometriosis N Bladder or Kidney Problems N High Cholesterol N Liver Disease N Fibromyalgia N Headaches N Kidney Disease N Allergies/Hayfever Y Heart Problems N Parkinson's Disease N Ear or Hearing Problems N Hospitalizations N Alzheimer's N Thyroid Problems N GI Problems N Eating Disorder N Skin Problems N Anemia N Constipation N Mental Illness N Diabetes N Ovarian Cancer N Seizures/Epilepsy N Tuberculosis N Eczema N Diverticulitis N Asthma N Reflux/GERD N Sleep Apnea N GERD/Reflux N Hepatitis N Heart Disease N Pulmonary Embolism N Chronic Ear Infections N Pre-Eclampsia N Hypertension Y Chicken Pox Y Osteoporosis N Thrombophilias N Gynecological HistoryNo gynecological history recorded. Obstetrics History GPAL:G 0 P 0 0 0 0 Immunizations Vaccine Type Date Status Note Provider Name and Address Organization Details Recorded Time Influenza, split virus, quadrivalent , PF 0 cancelled patient objection MILLY LOUIS PA-C [address] [place] [address], [address], [facility] 03/03/2020 15:32:24 Past Encounters Encounter ID Performer Location Encounter Start Date Encounter Closed Date Diagnosis/Indication Diagnosis SNOMED-CT Code Diagnosis ICD10 Code Diagnosis Note [id number] MILLY LOUIS PA-C [facility] [address] [place] [address] 03/03/2020 15:00:16 03/03/2020 15:42:17 Essential hypertension 82939423 I10 Blood pressures elevated in office today however I'm concerned about her hypotensiv e episodes. She will continue to monitor blood pressure daily and bring logs to 1 month recheck. Blood pressures consistent ly 140/80 or higher or she has detailed she will contact the office. Advised low-sodium diet Administra tion of influenza vaccine 44454645 Z23 Body mass index 40+ - severely obese 480961930 Z68.41 Vitamin D deficiency 347 28781 E55.9 most recent check, lab was 9 Migraine 39164519 G43.90 9 patient's headache symptoms that are likely causing hypertensi ve episodes sound like migraines. She has never been diagnosed. She will continue to monitor symptoms and blood pressure. We will consider starting abortive or preventati ve medication Mixed anxi ety and depressive disorder 080524130 F41.8 patient agrees to first treat anxiety and depression . She'll begin Celexa 20 mg. She will continue to monitor blood pressure, headache symptoms daily. Return to clinic for recheck in one month, sooner if worsening symptoms overall [id number] MILLY LOUIS PA-C [address] [place] [address] 04/05/2020 14:57:09 04/05/2020 15:41:48 Essential hypertension 70575898 I10 having menses. UA is normal. We'll recheck at follow-up with Dr. Pearce. I believe this is contaminan t of microalbum in and we will recheck at follow-up. She is currently stable off medication s. She will continue to work on low sodium diet, weight loss and reducing fat in her diet. Vitamin D deficiency 347 13521 E55.9 continue weekly supplement Mixed anxi ety and depressive disorder 164741187 F41.8 continue Celexa 20 mg. Contact the office this medication side effect versus fatigue becomes worse otherwise I'll see her back in 6 months Abnormal u terine bleeding 2311383020 9100 N93.9 to follow up with Dr. Pearce. Polycystic ovary syndrome 431555751 E28.2 consider metformin and she will discuss with gynecology Contact dermatitis 79548 004 L25.9 [id number] MILLY LOUIS PA-C [address] [place] [address] 05/04/2020 09:42:22 05/04/2020 15:21:51 COVID-19 736345102 U07.1 advised patient and members of his/her household to isolate for 10 days past positive test. contact the office if he/she begins to have worsening symptoms of COVID-19 such as shortness of air, high fever, chest pain Advised: 325mg ASA qd x 4 weeks pepcid 20mg qd x 4 weeks zinc 100mg qd x 4 weeks continue weekly vitamin d supplement vitamin c 500mg bid x 4 weeks iron 65mg qd x 4 weeks tylenol for fever, aches prn obtain pulse ox and begin watching saturation at home. this should be above 90 at all times. if below 90 pleaes call right away or go to ER. Administra tiaminata reason for encounter [id number] Z02.9 short term disability paperwork completed. scan into chart Cough 80983382 R05 Mixed anxi ety and depressive disorder 818483621 F41.8 continue Celexa 20 mg. Contact the office this medication side effect versus fatigue becomes worse otherwise I'll see her back in 6 months [id number] MILLY LOUIS PA-C [facility] [address] [place] [address] [place] [address] 09/27/2020 15:47:34 09/27/2020 16:13:30 Vitamin D deficiency 19641422 E55.9 continue weekly supplement Mixed anxi ety and depressive disorder 022987900 F41.8 continue Celexa 20 mg. Polycystic ovary syndrome 954883360 E28.2 consider metformin and she will discuss with gynecology Cramp in lower limb [id number] R25.2 Venereal d isease screening [id number] Z11.3 Discussed the various types of STDs, related symptoms and the potential consequenc es (including effects on fertility) of STD infections . Reviewed ways to limit exposure and prevention techniques . Body mass index 40+ - severely obese [id number] Z68.41 encourage low-carb diet exercise and weight loss Left-sided piriformis syndrome [id number] M54.32 start Flexeril, Medrol Dosepak. Advised Medrol may make blood pressure elevate slightly. Discontinu e if she has any side effects discussed in detail. Begin physical therapy. Return if worsening. Discontinu e chiropract ic care for now Essential hypertension [id number] I10 advised low-sodium diet and weight loss adequate hydration. Begin metoprolol 25 mg twice daily. recheck in one month, sooner if readings are inappropri ate Health Concerns Section Related Observation LastModified by Organization Detai ls LastModified Time None Recorded Concern Status LastModified by Organization Details LastModified Time None Recorded Advance Directives Directive N: Payers Insurance Date Sequence Insurance Name Policy Number Policy Tavera Covered Member ID Tavera Member ID Guarantor Name 12/08/2021 1 [place] [id number] Jasmin Moody [id number] Jasmin Moody 12/18/2021 1 [facility] [employer] [place]ICA[place] - [place]MO) [id number] Jasmin Moody [id number] Jasmin Moody Notes Date Note Type Note Provider Name and Address Organization Details Recorded Time 0 text/html she presents today to establish care in this clinic and to discuss multiple concerns. She has a history of hypertension. She failed to lisinopril which causes angioedema. Amlodipine caused lower extremity edema. Hydrochlorothiazide 12 mg caused some hypotensive readings as well as 108 over the 50s or 60s. She felt very tired on these medications though did not have any orthostatic symptoms. This morning upon waking her blood pressure was 130/80. She feels like she is having elevations of blood pressure associated with headache. She can't determine if she is having migraines that are causing high blood pressure of high blood pressures causing headaches. When the headaches come on, approximately 2-3 times per month, she has light and sound sensitivity, vomiting. She will take Zofran and will have to go to bed and rest. When she is having a headache episode her blood pressure will get as high as 150/100. Patient is new to [place]. She moved her from [place]. She had a physical last year and would like to bring blood work in for her records. She has a history of vitamin D deficiency would like to have that rechecked. She is off medication She does have a history of anxiety and depressive disorder which has not been treated since she was a teenager. She took Zoloft for about 2 months and stopped taking it because she felt better. She denies that the suicide or self-harm but she does suffer with anxiety and depression. 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 Denies fever, nausea, vomiting, diarrhea, shortness of air, chest pain, dizziness, syncope, body aches, chills, chest congestion, recent antibiotic use. MILLY LOUIS PA-C [address] [place] [address], [id number], [facility] 03/03/2020 15:40:27 0 text/html GME PPB: november 2014. she is currently under the care of Dr. Pearce for abnormal uterine bleeding. She had a hysteroscopy and endometrial scraping on March 22 with negative results. She does have a history of PCO acid is not on metformin. She scheduled for a D&C in April and recently had a diagnostic transvaginal ultrasound but doesn't have the results yet.she is currently taking Depo-Medrol injections She is not a tobacco user. She drinks caffeine about 4 days per week and occasionally has coffee and an energy drink. She drinks 2-3 alcoholic beverages per month Vaccines: declines her mood is much improved with Celexa. She is no longer having headaches at all. She is not over thinking situations or having anxiety. She feels the Celexa makes her sleepy when she first takes the medication but she does take it before bedtime. 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 She denies thoughts of suicide or self-harm. her blood pressure is much improved. She is not on medication and is closely monitoring blood pressure. Readings at home are in the 120s over low 80s typically. She denies chest pain, service of breath, headache, dizziness, lightheadedness, nausea or vomiting MILLY LOUIS PA-C [address] [place], [phone], [facility] 04/05/2020 15:39:33 0 text/html Visit today is being conducted via telehealth using both audio/video. The patient confirms that he/she is physically located in [place] at the time of this visit. Patient has expressed an understanding of audio/video telehealth as a visit and has consented. dx covid 04-25 has not heard from health department, she was tested outside of this clinic patient presents today to discuss recent COVID-19 diagnosis and to get short-term disability paperwork completed. She would also like a refill of her Celexa. On April 25 she had a headache, sore throat and sinus infection symptoms. She tested positive and has remained off work since. She is scheduled to return tomorrow. 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 She is now having a cough with mild shortness of air after coughing fit. She denies productivity to her cough fever for the past 3 days body aches chills shortness of air. She does not have a way to check her oxygen saturation at home. Celexa continues to control anxiety and depressive symptoms well and she was to continue the medication. MILLY LOUIS PA-C [address] [place], [phone], [facility] 05/04/2020 14:43:23 1 text/html patient presents today for 6 month recheck of chronic conditions and to discuss new concerns.. Her mood has been stable with citalopram 20 mg. She denies suicidal thoughts. This medication continues to help her feel in control of her emotions and anxiety in check. She remains on vitamin D replenishment once weekly. she would like to request STD testing - no sx. possible exposure, has kyleena, having some brown, pinkish discharge. not having full periods. kyleena may. she is sexually active with her boyfriend and she was under the impression they were in a monogamous relationship. She recently found out this may not have been true. She did not use condoms. She has become plain of some 2 months pain of the left buttock left leg including the thigh and calf. She's been seeing her chiropractor is not helping. When at rest she feels like she has a charley horse. She denies erythema or edema. She has a hard time sitting still and sleeping due to pain. Tylenol and ibuprofen help often times when taken together. The medication doesn't seem to last. She does have some significant tightness possibly in the lower back and in the buttock. She has been continuing to work full-time and she is an online program to complete her [employer] in family medicine of note blood pressure is significantly elevated today. Review of historical blood pressure shows blood pressure seems to have been elevated above acceptable limits for the past several office visits. She is not currently on any medication. Denies fever, nausea, vomiting, diarrhea, shortness of air, chest pain, dizziness, syncope, body aches, chills, chest congestion, foot drop, without paresthesia or loss of bowel or bladder MILLY LOUIS PA-C [address] [facility] [place], [phone], [facility] 09/28/2020 07:39:10 OBGyn Episode No OBEpisode recorded.
--- OUTSIDE RECORDS SUMMARY | 2024-10-03 09:15 | XMS_ITS | Referral Summary ---
Author Organization [facility] Address [address] [place] [address] Care Team Providers Care Jewel Stringer Name Role Phone Patricia Mandujano MD Unavailable [phone] Lana Hall NP Primary Care Provider [phone] Encounters Date Type Department Care Team Description 09/21/2024 10:00 AM CDT - 09/21/2024 11:59 PM CDT Hospital Encounter [facility] - Ultrasound [address], 7th [address], [address] [facility] [place] [address] Supervision of high-risk , unspecified trimester Discharge Disposition: Discharge to home or self care 09/07/2024 12:42 PM CDT - 09/07/2024 11:59 PM CDT Hospital Encounter [address] [id number] Supervision of high-risk , unspecified trimester Discharge Disposition: Discharge to home or self care 09/07/2024 10:30 AM CDT Office Visit [facility] [address] [place] [address] Outpatient Health 7th Floor [address] [place] [address] Chronic hypertension affecting (Primary Dx); Supervision of high-risk , unspecified trimester; AMA (advanced maternal age) primigravida 35+, second trimester; Concern for short cervix 09/07/2024 9:30 AM CDT - 09/07/2024 11:59 PM CDT Hospital Encounter [facility] - Ultrasound [address], [address], [address] [place] [place] [place] [address] Supervision of high-risk , unspecified trimester Discharge Disposition: Discharge to home or self care 08/24/2024 Telephone [facility] [place] [address] Simi Clements from Last 3 Months Allergies Active Allergy Reactions Criticality Noted Date Comments Amlodipine Edema Medium 09/04/2022 Grass Pollen-Perennial [place], Standard Sneezing Low 04/25/2022 Influenza Virus Vaccines Shortness of breath High 04/25/2022 Lisinopril Angioedema High 04/25/2022 Metformin Diarrhea Low 06/05/2022 Tree Nut Itching Low 09/07/2024 Throat and skin itching Medications MULTIVITAMIN ORAL Take 1 tablet by mouth every other day Active cetirizine (ZyrTEC) 10 mg tablet Take 1 tablet (10 mg total) by mouth daily Active metoprolol XL (TOPROL-XL) 25 mg extended release tabletIndication s:Primary hypertension Take 1 tablet (25 mg total) by mouth daily 90 tablet 3 4 025 Active buPROPion XL (WELLBUTRIN XL) 150 mg 24 hr tabletIndication s:Mild episode of recurrent major depressive disorder,General ized anxiety disorder Take 1 tablet (150 mg total) by mouth every morning 90 tablet 3 4 025 Active fluticasone propionate (FLONASE) 50 mcg/actuation nasal spray Administer 1 spray into each nostril daily Active PNV no.95/ferrous fum/folic ac ( ORAL) Take by mouth Active NIFEdipine (NIFEdipine XL) 30 mg 24 hr tabletIndication s:Chronic hypertension affecting Take 1 tablet (30 mg total) by mouth daily 30 tablet 11 5 026 Active medroxyPROGESTER one (PROVERA) 10 mg tabletIndication s:Secondary Amenorrhea Take 1 tablet (10 mg total) by mouth daily 10 tablet 11 4 025 Discontin ued(Thera py completed ) Active Problems Problem Noted Date Diagnosed Date Concern for short cervix 09/07/2024 Overview (09/07/2024): - Anatomy US with CL 26.1mm, no contractions Discussed cervix is the lower limited of normal for cervical length. Discussed possible increased risk of delivery with CL <25mm. Reviewed role of CL screening and possible interventions such as vaginal progesterone and cerclage if cervix was <10mm or dilated. [] Repeat CL in 2 weeks Obesity complicating in second trimest er 08/25/2024 Overview (09/06/2024): Pre- BMI: Counseling 09/06/2024: Obesity in (BMI >30) is associated with increased risks. Maternal risks include higher rates of preeclampsia, gestational diabetes, and section due to labor abnormalities. risks include anomalies, growth abnormalities ( growth restriction and macrosomia), and stillbirth. Maternal BMI can impact the ability to monitor the heart rate comprehensively during labor and delivery. Recommended weight gain is a total of 11-20 lbs, with 1-4 lbs in the 1st trimester and 0.5 lb/week in the 2nd and 3rd trimesters. Plan: [] Low dose ASA starting at 12 weeks [] Early overt diabetes screening with HgbA1C [] Specialized anatomic survey at 18-22 weeks [] Consider growth ultrasounds every 4 weeks starting at 28 weeks [] 3rd trimester anesthesia consultation if BMI >/=50 [] Weekly testing at 34 weeks (BMI >/=40) and 37 weeks (BMI 35.0-39.9) AMA (advanced maternal age) primigravida 35+, second trimester 08/25/2024 Overview (09/07/2024): Age at GILBERT: 34 Counseling 09/06/2024: We discussed that advanced maternal age (AMA) is associated with increased risks of spontaneous , aneuploidy, gestational diabetes, and hypertensive disorders of . Additionally, we discussed the added risks for individuals over the age of 40 years, including growth restriction and stillbirth. We discussed genetic screening and diagnostic testing options, as well as the risks and benefits of each. For the increased risk of preeclampsia, we recommend starting low dose aspirin at 12 weeks daily if other moderate risk factors are present. Maternal age-related risks of aneuploidy with an age of 34 at term include a 1:267 risk of trisomy 21 and a 1:148 risk of any chromosomal abnormality. Plan: [x] Genetic screening plan: LR NIPT [x] Low dose ASA starting at 12 weeks Chronic hypertension affecting 025 Overview (09/07/2024): History: Diagnosed at age 12, Diagnosis: Pre- medications: Previously took ACEi but has persistent cough, increased lower extremity swelling with amlodipine. On metoprolol 25mg daily prior to . Counseling 09/06/2024: We counseled the patient that chronic hypertension is associated with an increased risk of adverse outcomes, including growth restriction and stillbirth. Additionally, we discussed that hypertension is associated with development of superimposed preeclampsia with severe features and placental abruption, which can result in iatrogenic delivery in up to 30% of individuals with mild chronic hypertension. Baseline serum preeclampsia labs (CBC, creatinine, BUN, AST, ALT) are recommended in all patients with a history of hypertension. A workup for end organ damage is also recommended, including an EKG and urine protein/creatinine ratio. A fundoscopic exam by ophthalmology is recommended as well, if one has not been performed within the last 12 months. Low dose aspirin is recommended to start at 12 weeks for preeclampsia prophylaxis. Preeclampsia symptoms (headache, scotomata, epigastric pain) were reviewed. We reviewed the course of blood pressures in , specifically that patients usually experience a decrease in systemic pressure in the first trimester followed by a gradual rise starting at around 28 weeks. Recent data from the CHAP study recommends a treatment BP goal of <140/90 antepartum to improve maternal and outcomes, especially in reducing the risk of preeclampsia. Mildly elevated blood pressures in patients with chronic hypertension have not been associated with poor outcomes in the fetus or the mother. However, a preeclampsia workup would be recommended if blood pressures are elevated and significantly above usual baseline or in the severe range for . Deborah had tried increasing her metoprolol to 50mg daily but experienced dizziness. Discussed other options for BP control during including labetalol and nifedipine. Labetalol is most closely related to metoprolol but requires TID dosing which can be difficult with a busy lifestyle. Nifedipine is similar to amlodipine and not usually associated with lower extremity swelling. Transitioning to these medications would allow for easier titration throughout . Patient desires to try nifedipine XL 30mg daily. Current medication regimen: Nifedipine XL 30mg daily (transitioned from metoprolol succinate 25 mg daily 09/07) Plan: [x] Low dose ASA 81 mg starting at 12 weeks [] Baseline preeclampsia labs (CBC, CMP, UPC) ordered [] Baseline EKG ordered [] Baseline ECHO (if abnormal EKG, long standing disease or long-term medications) ordered [] Serial growth ultrasounds every 4 weeks starting at 24 weeks [] Weekly surveillance starting at 32 weeks [] Delivery at 37w0d - 39w6d is recommended, (with the possibility of earlier delivery for uncontrolled hypertension or preeclampsia) Other specified diseases and conditions complicating 08/25/2024 Supervision of high-risk , second trime ster 08/25/2024 Overview (09/07/2024): [x] OB consult only, [] Co-management vs. [] Full MFM Care; [] Red Team [] Blue Team Referring Provider: Deepika Kilpatrick [facility]) [phone] [] [employer] or Medicare Insurance [x] Dating Criteria: US 06/15/24 with GILBERT 01/26/25 [x] Labs: Rh [AB+], Ab [negative], Rubella [immune], HIV [non- reactive], HepBSAg [non-reactive], HepBSAb [ordered], HepBCAb [ordered], RPR [non- reactive], Hep C [non-reactive], Varicella [positive], GC/CT [negative/negative] [x] Aneuploidy Screening: NIPT low risk, AFP negative for open NTD [x] Carrier Screening: Alpha-Thalassemia positive, CF negative, SMA negative, Sickle Cell/Beta-Thalassemia/Hemoglobinopathies negative [x] Hgb electrophoresis: 07/14/24 normal phenotype [x] CBC/Hgb: 13.3/40.8/plt 293 [x] Hgb A1c 07/14/24: 5.0 [x] UCx: 07/14/24: no growth [x] Pap: 10/04/22: NILM; HPV negative (Epic) [] LD ASA (if indicated): [] EPDS [ ]; PNBHS referral (if indicated): 2nd Trimester [] Anatomy ultrasound: incomplete 09/07 [] CBC/1hr gtt at 24-28wks: [] Rhogam at 28 wks (if Rh neg): 3rd Trimester [] CBC/HIV/RPR/T&S: [] GBS: [] GC/CT (if indicated): [] testing: Counseling [] MOD: [] Place of delivery: [] Epidural: [] Accepts Blood Products: [] Stop ASA: [] MOC: [] Method of feeding: [] Province Archivist (specifically which provider): [] PP Depression Discussed: [] PP visits scheduled: Vaccines [] Flu Shot (Jan-Apr): [] COVID vaccine: [] Tdap (27-36wks): [] RSV vaccine (32-36wks): [] PP HPV vaccine counseling (<=26 yo): Chronic left-sided low back pain with left-sided sciatica 09/16/2023 Assessment & Plan (09/16/2023 1:00 PM CDT): Urine dipstick ordered, test was negative. Xrays ordered, trial of oral steroids and muscle relaxer. Consider PT. Referred to Ortho for further eval/mgmt. Alpha thalassemia silent carrier 09/10/2023 Overview (09/07/2024): Discussed carrier screening results and additional workup with partner testing to determine risk of alpha thalassemia. Declined genetic counseling and partner testing. Intrauterine contraceptive d evice threads lost, subsequent encounter 08/06/2023 DUB (dysfunctional uterine bleeding) 10/04/2022 Assessment & Plan (10/04/2022 1:56 PM CDT): Most likely secondary to IUD Options discussed She will try a round of flagyl. We discussed doxy also, but she will hold. Hirsutism 10/04/2022 Overview (10/04/2022): Tweezes under chin None around nipples Few between umbilicus and sternum Assessment & Plan (10/04/2022 2:14 PM CDT): Options dicussed Will hold spironolactone until after lauren To vaniqa Use reviewed. Enlargement of labia 10/04/2022 Assessment & Plan (10/04/2022 2:38 PM CDT): Will follow for now. IUD strings lost 10/04/2022 Assessment & Plan (08/26/2023 10:52 AM CDT): Removed with out difficulty in the or Assessment & Plan (06/03/2023 11:57 AM MASK DESIGNER): Procedure reviewed along with risk, benefits and alternatives as they pertain to her specifically. Questions answered Post op pain management discussed. She voices understanding and desired to proceed. Assessment & Plan (02/15/2023 1:01 PM CDT): Options reviewed She would like to go to [place] Will arrange Procedure reviewed along with risk, benefits and alternatives as they pertain to her specifically. Questions answered Post op pain management discussed. She voices understanding and desired to proceed. Assessment & Plan (10/04/2022 2:40 PM CDT): To usg Primary hypertension 09/04/2022 Assessment & Plan (10/14/2023 12:35 PM CDT): BP well controlled, continuing Metoprolol. Renal function in god shape from labs x 2 months ago. Assessment & Plan (09/16/2023 12:59 PM CDT): Blood pressure at goal less than 140/90, continue current prescription medications, metoprolol xl. Assessment & Plan (09/04/2022 9:50 AM CDT): Elevated, add metoprolol xl. BP goal is < 140/90. Low sodium diet. Increase water intake. ACEI/ARB contraindicated 09/04/2022 Assessment & Plan (09/04/2022 9:49 AM CDT): Experienced angioedema while on lisinopril. Class 3 severe obesity due t o excess calories without serious comorbidity with body mass index (BMI) of 50.0 to 59.9 in adult 08/14/2022 Assessment & Plan (10/14/2023 12:38 PM CDT): Discussed patient's PCOS and potential medications. Will have patient settle with new job but could potentially trial Phentermine if GLP-1 still not covered by insurance. Assessment & Plan (09/16/2023 12:59 PM CDT): Weight reduction, daily exercise and dietary modifications recommended., as obesity can complicate their hypertension Assessment & Plan (12/04/2022 1:41 PM CDT): Weight reduction, daily exercise and dietary modifications recommended., as obesity can complicate their hypertension Assessment & Plan (09/04/2022 9:50 AM CDT): Weight reduction, daily exercise and dietary modifications recommended., as obesity can complicate their hypertension Assessment & Plan (08/14/2022 7:12 AM CDT): HPI: Condition is not at/near goal goal BMI <30 A&P: Healthy, high-protein, lower carbohydrate, lower fat lifestyle and exercise for 150min/week recommended Insomnia due to other mental disorder 04/25/2022 Assessment & Plan (12/04/2022 11:23 AM CDT): Resolved after adding Wellbutrin xl to daily regiment. Assessment & Plan (04/25/2022 8:17 PM MASK DESIGNER): Trial of ambien. Will follow. Mild episode of recurrent major depressive disor glen 04/25/2022 Assessment & Plan (09/16/2023 12:58 PM CDT): Stable. Cont. Current prescription medications, bupropion xl. Assessment & Plan (12/04/2022 1:30 PM CDT): Clinically improved. Current prescription medications, bupropion xl. Assessment & Plan (09/04/2022 9:51 AM CDT): Waxing and waning, trial of Wellbutrin xl. Counseling packet given. Assessment & Plan (08/14/2022 11:21 AM CDT): -chronic -stable, but experiencing sexual side effects -advised patient that wellbutrin helps better with depression, but can worsen anxiety, so it may not be the best option at this time given patient's recent palpitations -wean off citalopram and start on lexapro 10 mg daily To discontinue citalopram and start lexapro: Week 1: Take citalopram, Take citalopram, Hold citalopram, Take citalopram, Take citalopram, Hold citalopram, Take citalopram Week 2: Take citalopram, Hold citalopram, Take citalopram, Hold citalopram, Take citalopram, Hold citalopram, Take citalopram Week 3: Hold citalopram, Hold citalopram, Take citalopram, Hold citalopram, Hold citalopram, Take citalopram, Hold citalopram Week 4: Start lexapro daily If at anytime your symptoms return, go back a week and try again -Follow-up in 7 weeks Assessment & Plan (06/07/2022 7:38 AM MASK DESIGNER): Clinically improved, continue current prescription medications, citalopram. Assessment & Plan (04/25/2022 8:17 PM MASK DESIGNER): Worsening, will re-start Celexa. Rx sent. Labs ordered. Go to nearest ER if you feel you will be a harm to yourself or to someone else. Denies suicidal ideations. Generalized anxiety disorder 04/25/2022 Overview (09/07/2024): Current regimen: Wellbutrin 150mg daily No specific congenital anomalies have been associated with bupropion. Discussed that this dose can be increased as needed during . Max dose 300mg daily. Early case-control studies suggested an increase risk of congenital heart defects but this has not been corroborated in other studies. No adverse effects have been reported for use in and . Bupropion is excreted into breast milk. Plan: [x] Using shared decision making, plan to continue current mediation [] Alert pediatrics at delivery regarding maternal medication Assessment & Plan (10/14/2023 12:36 PM CDT): Doing well on Wellbutrin XL 150 mg. Assessment & Plan (09/16/2023 12:58 PM CDT): Clinically improved, continue current prescription medications, bupropion xl. Assessment & Plan (12/04/2022 1:40 PM CDT): Stable. Cont. Current prescription medications, bupropion xl. Assessment & Plan (09/04/2022 9:50 AM CDT): Waxing and waning, trial of Wellbutrin xl. Counseling packet given. Assessment & Plan (08/14/2022 11:21 AM CDT): -chronic -stable, but experiencing sexual side effects -advised patient that wellbutrin helps better with depression, but can worsen anxiety, so it may not be the best option at this time given patient's recent palpitations -wean off citalopram and start on lexapro 10 mg daily To discontinue citalopram and start lexapro: Week 1: Take citalopram, Take citalopram, Hold citalopram, Take citalopram, Take citalopram, Hold citalopram, Take citalopram Week 2: Take citalopram, Hold citalopram, Take citalopram, Hold citalopram, Take citalopram, Hold citalopram, Take citalopram Week 3: Hold citalopram, Hold citalopram, Take citalopram, Hold citalopram, Hold citalopram, Take citalopram, Hold citalopram Week 4: Start lexapro daily If at anytime your symptoms return, go back a week and try again -Follow-up in 7 weeks Assessment & Plan (06/07/2022 7:37 AM MASK DESIGNER): Stable. Cont. Current prescription medications, citalopram. Assessment & Plan (04/25/2022 8:16 PM MASK DESIGNER): Worsening, will re-start Celexa. Rx sent. Labs ordered. Go to nearest ER if you feel you will be a harm to yourself or to someone else. Denies suicidal ideations. Polycystic ovary syndrome 09/27/2020 Assessment & Plan (10/14/2023 12:35 PM CDT): Has tried Metformin in the past, unable to tolerate due to side effects. Patient would be a good GLP-1 candidate but insurance not covering right now. Assessment & Plan (08/26/2023 10:52 AM CDT): Will follow to see if her cycles are regular or not Assessment & Plan (08/14/2022 11:18 AM CDT): -chronic -not at goal, experiencing increased chin hair -follow up with PAYROLL MANAGER Vitamin D deficiency 09/27/2020 Estimated Date of Delivery Comme nts Yes 01/26/2025 Based on Ultraso und Resolved Problems Problem Noted Date Diagnosed Date Resolved Date Vaginal discharge 12/05/2022 09/16/2023 Assessment & Plan (12/05/2022 1:37 PM CDT): Tissue appears to be combination if mucousy vaginal tissue and possible endometrial tissue. Plan for vaginitis and STD testing. Continue to monitor. Encounter for preconception consultation 10/04/2022 09/16/2023 Overview (09/10/2023): The pt is considering in the next year. To MVI No family history of neural tube defects or other defects. She does have a first cousin with hydrocephalus- no know cause. The patient was encouraged to be a healthy weight. She had diarrhea with metformin [facility]. The patient was encouraged to be in a healthy relationship She was encouraged to not use tobacco or marijuana. Varicella- she had To varicella and rubella titers- she had for work and was immune Carrier screening discussed- she would like to do. To routine health maintenance labs- had in May 2023 with pcp 09/10/2023-Alpha thal silent carrier Assessment & Plan (08/26/2023 10:52 AM CDT): The pt is considering in the next year. To MVI No family history of neural tube defects or other defects. She does have a first cousin with hydrocephalus- no know cause. The patient was encouraged to be a healthy weight. She had diarrhea with metformin [place] dicussed. The patient was encouraged to be in a healthy relationship She was encouraged to not use tobacco or marijuana. Varicella- she had To varicella and rubella titers- she had for work and was immune Carrier screening discussed- she would like to do. To routine health maintenance labs- had in May 2023 with pcp Assessment & Plan (10/04/2022 1:57 PM CDT): She is interested in ovarian reserve testing Not wanting kids for another 1-2 years May want preservation. To LAUREN. Well woman exam 10/04/2022 12/04/2022 Overview (10/04/2022): Lab: Pap:h/o abnl in 2008, s/p colpo, negative. Labs with pcp Titi: Colonoscopy: BMD: Gardasil:06/28 Assessment & Plan (10/04/2022 2:07 PM CDT): Pap done. RTO 12m. I will send the results to the portal. If she has not heard in a week, to call the office. She will get her last gardasil today. Anal fissure 10/04/2022 09/16/2023 Assessment & Plan (10/04/2022 2:35 PM CDT): To nystatin To colace bid at least If no better in 2-3 weeks, will refer to GI or surgery. Mixed anxiety and depressive disorder 09/27/2020 06/05/2022 Immunizations Immunization Administration Dates Next Due HPV, Unspecified 05/27/2008 HPV9 10/04/2022 Hep B Vaccine 07/27/1998,03/07/1998,02/01/1998 HiB 06/03/1989 Influenza, Trivalent, IM (MDV) 02/25/2016 Influenza, Unspecified 05/27/2023(Deferr ed: Patient Refused),09/04/2022(Deferred: Patient Refused),05/27/2022(Deferred: Patient Refused),02/24/2021(Deferred: Patient Refused),03/10/2015,03/10/2014 MMR 07/26/1999,01/01/1990 Moderna SARS-CoV-2 Monovalen t Vaccination (12+ YRS) 02/10/2021,01/13/2021 Polio, Unspecified 01/01/1990, 9,1988,1988 Td, Unspecified 10/07/2002 Tdap 10/10/2015, 6,01/12/1993,1989,04/09/1989,1988 Social History Tobacco Use Types Packs/Day Years Used Date Smoking Tobacco: Never Smokeless Tobacco: Never Tobacco Cessation:Counseling Given: Not Answered Humiliation, Afraid, Rape, and Kick questionnair e Answer Date Recorded Within the last year, have y ou been afraid of your partner or ex-partner? No 10/04/2022 Within the last year, have y ou been humiliated or emotionally abused in other ways by your partner or ex-partner? No Within the last year, have y ou been kicked, hit, slapped, or otherwise physically hurt by your partner or ex-partner? No 10/04/2022 Within the last year, have y ou been raped or forced to have any kind of sexual activity by your partner or ex-partner? No 10/04/2022 AUDIT-C Answer Date Recorded Q1: How often do you have a drink containing alc ohol? 2-4 times a month 08/06/2023 Q2: How many drinks containi ng alcohol do you have on a typical day when you are drinking? 1 or 2 08/06/2023 Frequency of Binge Drinking Not on file 07/25 PHQ-2 Answer Date Recorded PHQ-2 Total Score (If total score is 3 or more points, staff should administer the PHQ-9) 0 10/14/2023 Personal Safety Answer Date Recorded Have you ever been in or are you currently in a harmful physical or emotional relationship or is someone making you feel afraid or unsafe? Denies 08/06/2023 Estimated Date of Delivery Comme nts Yes 01/26/2025 Based on Ultraso und Sex and Gender Information Value Date Recorded Sex Assigned at Not on file Legal Sex Female 1:51 PM CDT Gender Identity Female 08/06/2022 5:45 PM CDT Sexual Orientation Straight 09/14/2024 1: 57 PM CDT Last Filed Vital Signs Vital Sign Reading Time Taken Comments Blood Pressure 129/84 09/07/2024 11:03 AM CDT Pulse 107 09/07/2024 11:03 AM CDT Temperature 36.9 C (98.4 F) 02/04/2024 8:22 AM CDT Respiratory Rate 20 02/04/2024 8:22 AM CDT Oxygen Saturation 99% 09/07/2024 11:03 AM CDT Inhaled Oxygen Concentration - - Weight 139.3 kg (307 lb) 09/07/2024 11:03 AM CDT Height 167.6 cm (5' 6 ) 09/07/2024 11:03 AM CDT Body Mass Index 49.55 09/07/2024 11:03 AM CDT Plan of Treatment Not on file Procedures Procedure Name Priority Date/Time Associated Diagnosis Comments US OB TRANSVAGINAL Schedule Routine, Read Routine (OP Routine) 09/21/2024 10:14 AM CDT Supervision of high-risk , unspecified trimester URINE CULTURE Routine 09/07/2024 2:27 PM CDT Supervision of high-risk , unspecified trimester PROTEIN / CREATININE RATIO, URINE, RANDOM Routine 09/07/2024 12:42 PM CDT Supervision of high-risk , unspecified trimester URINALYSIS AND REFLEX TO MICROSCOPIC Routine 09/07/2024 12:42 PM CDT Supervision of high-risk , unspecified trimester US OB DETAIL ANATOMY SINGLE OR FIRST GESTATION Schedule Routine, Read Routine (OP Routine) 09/07/2024 9:49 AM CDT Supervision of high-risk , unspecified trimester HEMOGLOBIN ANALYSIS BY ELECTROPHORESIS Routine 07/14/2024 HEMOGLOBIN A1C Routine 07/14/2024 CYSTIC FIBROSIS DIAGNOSTIC STUDY Routine 07/14/2024 ABO/RH Routine 07/14/2024 CBC WITHOUT DIFFERENTIAL Routine 07/14/2024 ANTIBODY SCREEN Routine 07/14/2024 SMA CARRIER SCREEN Routine 07/14/2024 CHLAMYDIA TRACHOMATIS CULTURE Routine 07/14/2024 N. GONORRHOEAE CULTURE Routine 07/14/2024 VARICELLA ZOSTER ANTIBODY, IGG Routine 07/14/2024 RUBELLA IGG Routine 07/14/2024 RPR Routine 07/14/2024 HEPATITIS B SURFACE ANTIGEN Routine 07/14/2024 HEPATITIS C ANTIBODY Routine 07/14/2024 HIV 1/2 ANTIBODY PLUS P24 ANTIGEN Routine 07/14/2024 URINE CULTURE Routine 07/14/2024 PAP AND HIGH RISK HPV, REFLEX TO GENOTYPING Routine 10/04/2022 8:56 AM CDT from Last 3 Months or Most Recently Relevant to Health Maintenance Results * US Ob Transvaginal (09/21/2024 10:14 AM CDT) Fetus# Fetus1 VIEWPOINT Placenta Details posterior, Previa-no VIEWPOINT Presentation Breech VIEWPOINT Anatomical Region Laterality Modality Abdomen N/A Ultrasound 09/21/2024 10:2 2 AM CDT Impressions 09/21/2024 10:55 AM CDT Limited scan for completion of previously unseen anatomy which was visualized today as normal. TVCL today of 27 mm which is stable and normal. Narrative Procedure Note Lora Nettles MD - 09/21/2024 IMPRESSION: Limited scan for completion of previously unseen anatomy which wasvisualized today as normal. TVCL today of 27 mm which is stable andnormal. Lana Healy MD IMG OB US PROCEDURES Final Result * Urine culture Urine, clean voided (09/07/2024 2:27 PM CDT) Report Final Report: Less than 100,000 colonies/mL (clinically insignificant growth based on current clinical standards) Organism (CLINICALLY INSIGNIFICANT GROWTH [facility] Urine, clean voided 09/07/2024 2:27 PM CDT 09/07/2024 2:51 PM CDT Narrative [facility] - 09/08/2024 4:21 PM CDT Testing performed by [facility] Microbiology Laboratory ([phone]) Lana Healy MD LAB MICROBIOLOGY - GENERAL ORDERABLES Final Result [facility] Department [place] [address] * Urinalysis reflex to microscopic (09/07/2024 12:42 PM CDT) Color, ur Yellow Yellow Clarity, ur Clear Clear [facility] Specific gravity, ur 1.021 1.003 - 1.030 [facility] pH, urine 6.5 [facility] Comment: Interpretive Data U rine pH is affected by diet, medications, systemic acid-base disturbances, and renal tubular function. pH may affect urinary stone formation. For example, urine pH below 6.0 may help reduce the tendency for calcium phosphate stones and pH greater than 6.0 may reduce the tendency for uric acid stone formation. Source: [facility] Current Interpretive Data was last revised on 2017 Protein, ur ql Trace Negative [facility] Glucose, ur ql Negative Negative [facility] Ketones, ur Negative Negative [facility] Bilirubin, ur Negative Negative [facility] Blood, ur Negative Negative [facility] Urobilinogen, ur <2.0 <2.0 mg/dL [facility] Nitrite, ur Negative Negative [facility] Leukocyte esterase, ur Negative Negative [facility] UA reflex comment Reflex conditions for microscopic UA not met. [facility] Urine 09/07/2024 12:4 2 PM CDT 09/07/2024 2:29 PM CDT Lana Healy MD LAB URINE ORDERABLES Final Result Performing Organization Address [facility] Co de Phone Number [facility] ([facility] [place] [address] * Protein / creatinine ratio, urine, random (09/07/2024 12:42 PM CDT) Protein, ur, quant 18.5 mg/dL Comment: Interpretive Data No reference range established. Current interpretive data was last revised 2018. Creatinine Ur 269.5 mg/dL [facility] Comment: Interpretive Data No reference range established. Current interpretive data was last revised 2018. Protein/creatinin e ratio 68.6 0.0 - 180.0 mg/g CR [facility] Urine 09/07/2024 12:4 2 PM CDT 09/07/2024 4:03 PM CDT us Lana Healy MD LAB URINE ORDERABLES Final Result Performing Organization Address City/[facility]/ZIP Co de Phone Number [facility] [place] [address] * US Ob Detail Anatomy Single Or First Gestation (09/07/2024 9:49 AM CDT) Fetus# Fetus1 VIEWPOINT Estimated Weight 341 g&grams VIEWPOINT Placenta Details posterior, Previa-no VIEWPOINT Presentation Breech VIEWPOINT Anatomical Region Laterality Modality Body N/A Ultrasound 09/07/2024 9:50 AM CDT Impressions 09/07/2024 11:16 AM CDT Normal biometry and amniotic fluid. Detailed anatomic assessment as above which appeared grossly normal within the limitations of ultrasound with a few limitations today due to position and maternal acoustics. Normal adnexa. TVCL measures 26.1 mm today. MFM to follow. Narrative Procedure Note Lora Nettles MD - 09/07/2024 IMPRESSION: Normal biometry and amniotic fluid. Detailed anatomic assessment as abovewhich appeared grossly normal within the limitations of ultrasoundwith a few limitations today due to position and maternal acoustics.Normal adnexa. TVCL measures 26.1 mm today. MFM to follow. Anh Quintero MD IMG OB US PROCEDURES Final Result * HIV 1/2 Antibody plus p24 Antigen Blood (07/14/2024) SCRIBED HIV P24 Nonreactive Nonreactive , Invalid Blood Deepika Kilpatrick NP LAB MICROBIOLOGY - GENERAL OR DERABLES Final Result * SMA carrier screen (07/14/2024) SCRIBED SMA negative Deepika Kilpatrick NP LAB GENETIC TESTING Final Res ult * Hemoglobin analysis by electrophoresis (07/14/2024) Scribed Hemoglobin Electrophoresis Normal Blood Deepika Kilpatrick NP LAB BLOOD ORDERABLES Final Re sult * Hepatitis C antibody Blood (07/14/2024) SCRIBED HCV ab non-reacti ve Blood Deepika Kilpatrick RESEARCH PROGRAMMER LAB MICROBIOLOGY - GENERAL OR DERABLES Final Result * Cystic fibrosis diagnostic study (07/14/2024) SCRIBED CF negative Blood Deepika Kilpatrick RESEARCH PROGRAMMER LAB BLOOD ORDERABLES Final Re sult * ABO/Rh (07/14/2024) Pathologist [facility] SCRIBED ABO/Rh AB+ Blood Deepika Kilpatrick LAB BLOOD BANK TEST ORDERABLE S Final Result * Rubella IgG antibody Blood (07/14/2024) Pathologist [facility] Rubella IgG Scribed Immune Blood Deepika Kilpatrick NP LAB MICROBIOLOGY - GENERAL OR DERABLES Final Result * RPR Blood (07/14/2024) Pathologist [facility] SCRIBED RPR Non-Reacti ve Non-Reacti ve Blood Deepika Kilpatrick NP LAB MICROBIOLOGY - GENERAL OR DERABLES Final Result * Hepatitis B Surface Antigen Blood (07/14/2024) SCRIBED HBsAg Nonreactive Nonreactive , Invalid Blood Result [facility] Deepika Kilpatrick NP LAB MICROBIOLOGY - GENERAL OR DERABLES Final Result * CBC without differential (07/14/2024) Pathologist [facility] Hct 40.8 Hgb 13.3 Plt 293 Blood Deepika Kilpatrick NP LAB BLOOD ORDERABLES Final Re sult * Antibody screen (07/14/2024) SCRIBED Indirect Antiglobulin negative Blood Deepika Kilpatrick NP LAB BLOOD BANK TEST ORDERABLE S Final Result * Chlamydia trachomatis culture (07/14/2024) SCRIBED Chlamydia culture negative Deepika Kilpatrick NP LAB MICROBIOLOGY - GENERAL OR DERABLES Final Result * Urine culture (07/14/2024) SCRIBED Urine culture no growth Deepika Kilpatrick RESEARCH PROGRAMMER LAB MICROBIOLOGY - GENERAL OR DERABLES Final Result * N. gonorrhoeae culture (07/14/2024) SCRIBED Gonorrhea culture negative Deepika Kilpatrick RESEARCH PROGRAMMER LAB MICROBIOLOGY - GENERAL OR DERABLES Final Result * Varicella Zoster IgG antibody Blood (07/14/2024) SCRIBED Varicella Zoster, IgG Positive Blood Deepika Kilpatrick NP LAB MICROBIOLOGY - GENERAL OR DERABLES Final Result * Hemoglobin A1c (07/14/2024) SCRIBED Hemoglobin A1c 5.0 % Blood Deepika Kilpatrick NP LAB BLOOD ORDERABLES Final Re sult * Pap and High Risk HPV, reflex to Genotyping (10/04/2022 8:56 AM CDT) Pap test 10/04/2022 8:56 AM CDT 10/04/2022 8:56 AM CDT Narrative 10/08/2022 1:54 PM CDT [facility] Department of Pathology [address] [place], [place] [id number] Final Report with Addendum Note to Patients: This report may contain a detailed description of human tissue sent by a health care provider to the laboratory for pathologic evaluation. The content of this report is essential for diagnosis and may provide important critical findings. This information may be unfamiliar to patients to review without a medical professional present. It is advised that the patient review this report in the presence of a health care provider who can answer questions and explain the details. Patient Name: DEBORAH MOODY Address: [address] [place] [address] Gender: F : 1990 (Age: 32) Service: Location: [facility] #: [id number] Patient Type: SPECIMEN Taken: 10/04/2022 Received: 10/04/2022 Accessioned:: 10/05/2022 Reported: 10/08/2022 Physician(s): Tae Oquendo M.D. Diagnosis: SOURCE OF SPECIMEN SCREENING THIN PREP IMAGED PAP w/ HPV: STATEMENT OF ADEQUACY - Satisfactory for evaluation; endocervical/transformation zone component present GENERAL CATEGORIZATION: - Negative for intraepithelial lesion or malignancy MARKO Alberts(ASCP) Report Electronically Reviewed and Signed Out By ÁNGELA AlbertsASC) 10/08/2022 13:54:27Addenda: HPV Test Interpretation NEGATIVE for types 16, 18, 31, 33, 35, 39, 45, 51, 52, 56, 58, 59, 66 and 68. Test performed utilizing Gen-Probe Aptima assay. MARKO Cedeno(ASCP)Report Electronically Reviewed and Signed Out By MARKO Cedeno(ASC) 10/08/2022 11:52:16 Specimen(s) Received: A: SCREENING THIN PREP IMAGED PAP w/ HPV Clinical History: Last Menstrual Period: 08/25/22 The Pap test is a screening test used to aid in the detection of cervical cancer and its precursors. It should not be the sole means by which malignant and premalignant lesions are diagnosed. Both false negative and false positive results may occur. It also has poor sensitivity for the detection of endometrial lesions and should not be used to evaluate suspected endometrial abnormalities. For these reasons it is most important to obtain Pap tests at regular intervals. The performance characteristics of some immunohistochemical stains, fluorescence in-situ hybridization tests and immunophenotyping by flow cytometry cited in this report (if any) were determined by the Surgical Pathology Department at [facility] as part of an ongoing quality improvement analyst program and in compliance with federally mandated regulations drawn from the Clinical Laboratory Improvement Act of 1988 (CLIA '88). Some of these tests rely on the use of analyte specific reagents and are subject to specific labeling requirements by the [place] Food and Drug Administration. Such diagnostic tests may only be performed in a facility that is certified by the Department of Health and Human Services as a high complexity laboratory under CLIA '88. The FDA has determined that such clearance or approval is not necessary. This test is used for clinical purposes. It should not be regarded as investigational or for research. Nevertheless, federal rules concerning the medical use of analyte specific reagents require that the following disclaimer be attached to the report: This test was developed and its performance characteristics determined by the Surgical Pathology Department [facility]. It has not been cleared or approved by the U. S. Food and Drug Administration. Patricia Mandujano MD LAB CYTOLOGY ORDERA BLES Final Result from Last 3 Months or Most Recently Relevant to Health Maintenance Insurance [employer] [place] [employer]ED [employer] [place] HMO/POS [facility] HMO/POS Care Teams Jewel Stringer Relationship Specialty Start Date End Date Lana Hall NP [address] [address] PCP - General Family Medicine 10/14/23 Patricia Mandujano MD Consulting Physician Obstetrics and Gynecology 06/05/22
--- OUTSIDE RECORDS SUMMARY | 2024-10-03 09:15 | XMS_ITS | Data Portability ---
Author Organization [employer] , [facility] Address [address] [place] [address] Assessment No assessment recorded. Plan of Treatment Reminders Order Date Submit Date Provider Last Modified By Organization Details Last Modified Time Details Appointments OB RETURN EST 2024 04:00P M Caprice peng CNM Not available Not available Not available Lab afp (alpha-fe toprotein ) panel, maternal screen, serum 2024 025 [facility], [address] [place], [address], 08/14/2024 18:26:12 genetic screen, unspecifi ed specimen 2024 025 [facility], [address], [place], [address], 07/28/2024 10:21:47 aneuploid y risk, chromosom e specific circulati ng cell free (ccf) DNA, maternal serum - dosn't want to know gender 2024 025 [facility], [address], [place], [address], 07/22/2024 02:10:18 hemoglobi n A1c, QN, blood 2024 025 [facility], [address] [place] [address], [address], 07/17/2024 12:17:38 abo group + rh type, blood 2024 025 [facility], [address] [place], [address], 07/17/2024 14:21:17 CBC w/ auto diff 2024 025 [facility], [address] [place], [address], 07/18/2024 11:52:25 CT + NG DNA, PCR, unspecifi ed specimen 2024 025 [facility], [address] [place], [address], 07/17/2024 13:58:12 drug of abuse panel, urine 2024 025 [facility], [address] [place], [address], 07/17/2024 12:59:28 obstetric screen + HIV, serum or blood 2024 025 [facility], [address] [place], [address], 07/17/2024 13:57:36 measles igg Ab, serum 2024 025 [facility], [address] [place], [address], 07/17/2024 14:21:16 culture, urine 2024 025 [facility], [address] [place], [address], 07/16/2024 23:19:21 varicella -zoster igg Ab screen, serum 2024 025 [facility], [address] [place], [address], 07/17/2024 14:21:15 hemoglobi nopathy profile, blood 2024 025 [facility], [address] [place], [address], 07/17/2024 14:21:15 antibody screen, serum or plasma 2024 025 [facility], [address] [facility], [place], [address], 07/17/2024 14:21:16 Referral maternal & medicine referral 2024 025 [facility], [address] [facility], [facility] [address], [address], 09/23/2024 13:00:29 Procedures None recorded. Surgeries None recorded. Imaging US, obstetric , transvagi nal 2024 025 [facility] Not available 06/15/2024 15:16:52 Medication Orders labetalol 200 mg tablet 2024 025 [id number], [address] [place], [id number], 09/07/2024 17:45:19 Wellbutri n XL 300 mg 24 hr tablet, extended release 2024 025 [id number], [address] [place], [place], [id number], 09/07/2024 17:45:25 Patient TargetsNo targets recorded. Patient InstructionsNo instructions recorded. Reason for Referral Maternal & Medicine Re ferral for Morbid obesity Referring Physician: Caprice Warren, ROOMING HOUSE KEEPER, Encounter Date: 08/11/2024 Results Created Date Observation Date Name Description Value Unit Range Abnormal Flag Note LastModifiedBy Organization Detail LastModifiedTime 07/24/1907/24/2024 [UNIT Y] ANEUP LOIDY NIPT + 22Q11 .2 this result reflects an amended result REVISE D REPORT to includ e sex. normal Not Available [facility] [address], [place], [address], 07/24/2024 21:39:12 07/24/19 25 07/24/2024 [UNIT Y] ANEUP LOIDY NIPT + 22Q11 .2 gestation SINGLE TON normal Not Available [facility] [address] [facility], [place], [address], 07/24/2024 21:39:12 07/24/19 25 07/24/2024 [UNIT Y] ANEUP LOIDY NIPT + 22Q11 .2 sex FEMALE normal Not Available [facility] [address] [facility], [place], [address], 07/24/2024 21:39:12 07/24/19 25 07/24/2024 [UNIT Y] ANEUP LOIDY NIPT + 22Q11 .2 trisomy 21 LOW RISK <1 in 10,000 normal Not Available [facility] [address] [facility], [place], [address], 07/24/2024 21:39:12 07/24/19 25 07/24/2024 [UNIT Y] ANEUP LOIDY NIPT + 22Q11 .2 trisomy 18 LOW RISK <1 in 10,000 normal Not Available [facility] [address] [facility], [place], [address], 07/24/2024 21:39:12 07/24/19 25 07/24/2024 [UNIT Y] ANEUP LOIDY NIPT + 22Q11 .2 trisomy 13 LOW RISK <1 in 10,000 normal Not Available [facility] [address] [place], [address], 07/24/2024 21:39:12 07/24/19 25 07/24/2024 [UNIT Y] ANEUP LOIDY NIPT + 22Q11 .2 monosomy X LOW RISK <1 in 10,000 normal Not Available [facility] [address] [facility], [place], [address], 07/24/2024 21:39:12 07/24/19 25 07/24/2024 [UNIT Y] ANEUP LOIDY NIPT + 22Q11 .2 sex chromosome aneuploidy NOT DETECT ED normal Not Available [facility] [address] , [place], [address], 07/24/2024 21:39:12 07/24/19 25 07/24/2024 [UNIT Y] ANEUP LOIDY NIPT + 22Q11 .2 22Q11.2 microdeletio n LOW RISK <1 in 10,000 normal Not Available [facility] [address] [facility], [place], [address], 07/24/2024 21:39:12 07/24/19 25 07/24/2024 [UNIT Y] ANEUP LOIDY NIPT + 22Q11 .2 fraction 3.2% normal Not Available [facility] [address] [facility], [place], [address], 07/24/2024 21:39:12 07/24/19 25 07/24/2024 [UNIT Y] ANEUP LOIDY NIPT + 22Q11 .2 for detailed report, see pdf See PDF normal Not Available [facility] [address] [facility], [place], [address], 07/24/2024 21:39:12 07/29/19 25 07/28/2024 [UNIT Y] DC Avalos fraction 3.2% normal Not Available [facility] [address] [facility], [place], [address], 07/28/2024 10:21:47 07/29/19 25 07/28/2024 [UNIT Y] DC ILYA PRIDE N alpha-thalas semia nipt result LOW RISK 1 in 2,300 ( patern al ethnic ity); 1 in 14,000 (Gener al popula tion) normal Not Available [facility] [address] [facility], [place], [address], 07/28/2024 10:21:47 07/29/19 25 07/28/2024 [UNIT Y] DC TELLOE N sickle cell disease/beta -thalassemia /hemoglobino pathies carrier screen NEGATI VE normal Not Available [facility] [address], [place], [address], 07/28/2024 10:21:47 07/29/19 25 07/28/2024 [UNIT Y] DC PRIDE N alpha-thalas semia carrier screen POSITI VE Silent susan r; aa/a- abnormal Not Available [facility] [address] [facility], [place], [address], 07/28/2024 10:21:47 07/29/19 25 07/28/2024 [UNIT Y] DC TELLOE N cystic fibrosis carrier screen NEGATI VE normal Not Available [facility] [address], [place], [address], 07/28/2024 10:21:47 07/29/19 25 07/28/2024 [UNIT Y] DC PRIDE N spinal muscular atrophy carrier screen NEGATI VE 2 SMN1 copies , SNP not presen t normal Not Available [facility] [address], [place], [address], 07/28/2024 10:21:47 07/29/19 25 07/28/2024 [UNIT Y] DC PRIDE N for detailed report, see pdf See PDF normal Not Available [facility] [address] [facility], [place], [address], 07/28/2024 10:21:47 06/08/19 25 06/09/2024 HCG, TOTAL , QUANT HCG, total, quant 87647 mIU/m L <5 high Refer ence Range s are for femal es aged 18 years - Adult Nonpr egnan t or preme nopau leticia <5 Postm enopa usal <10 Value s from diffe rent assay metho ds may vary. The use of this assay to monit or or to diagn ose patie nts with cance r or any other condi tion unrel ated to pregn tom has not been valid ated by the [facility] actur er of this assay . Not Available [facility] [address] [place], [address], 06/09/2024 13:29:09 07/13/19 25 07/15/2024 VAGIN ITIS PANEL bacterial vaginosis BV neg negati ve normal Not Available [address], [address], 07/15/2024 14:52:48 07/13/19 25 07/15/2024 VAGIN ITIS PANEL sandip species C. spp neg negati ve normal Not Available [address], [address], 07/15/2024 14:52:48 07/13/19 25 07/15/2024 VAGIN ITIS PANEL sandip glabrata C. gla neg negati ve normal Not Available [address], [address], 07/15/2024 14:52:48 07/13/19 25 07/15/2024 VAGIN ITIS PANEL trichomonas vaginalis CV/TV TRICH neg negati ve normal Not Available [address], [address], 07/15/2024 14:52:48 07/14/1907/16/2024 CULTU RE, URINE , ROUTI NE culture, urine, routine SEE NOTE CULTU RE, URINE , ROUTI NE Micro Numbe r: [id number] Test Statu s: Final Speci men Sourc e: Urine Speci men Quali ty: Adequ ate Resul t: No Growt h Not Available [facility] [address] [place], [address], 07/16/2024 23:19:21 07/14/19 25 07/17/2024 HEMOG LOBIN A1C hemoglobin A1C 5.0 % <5.7 normal The refer ence range for HbA1c is indic ated in the table below . Sugge sted Diagn osis =6.5% Consi stent with diabe west 5.7 6.4% Consi stent with incre ased risk for diabe west (pred iabet ic) <5.7% Consi stent with the absen ce of diabe west Not Available [facility] [address] [place], [address], 07/17/2024 12:17:38 07/14/19 25 07/17/2024 DRUG ABUSE PANEL 7 W/CON FIRM amphetamines Negati ve negati ve normal Not Available [facility] [address] [place], [address], 07/17/2024 12:59:28 07/14/19 25 07/17/2024 DRUG ABUSE PANEL 7 W/CON FIRM barbiturates Negati ve negati ve normal Not Available [facility] [address] [place], [address], 07/17/2024 12:59:28 07/14/19 25 07/17/2024 DRUG ABUSE PANEL 7 W/CON FIRM benzodiazepi iwona Negati ve negati ve normal Not Available [facility] [address] [place], [address], 07/17/2024 12:59:28 07/14/19 25 07/17/2024 DRUG ABUSE PANEL 7 W/CON FIRM cocaine metabolites Negati ve negati ve normal Not Available [facility] [address] [place], [address], 07/17/2024 12:59:28 07/14/19 25 07/17/2024 DRUG ABUSE PANEL 7 W/CON FIRM cannabinoids Negati ve negati ve normal Not Available [facility] [address] [place], [address], 07/17/2024 12:59:28 07/14/19 25 07/17/2024 DRUG ABUSE PANEL 7 W/CON FIRM methadone Negati ve negati ve normal Not Available [facility] [address] [place], [address], 07/17/2024 12:59:28 07/14/19 25 07/17/2024 DRUG ABUSE PANEL 7 W/CON FIRM opiates Negati ve negati ve normal Not Available [facility] [address] [place], [address], 07/17/2024 12:59:28 07/14/19 25 07/17/2024 DRUG ABUSE PANEL 7 W/CON FIRM creatinine, urine 144 mg/dL 20 - 275 normal Not Available [address], [address], 07/17/2024 12:59:28 07/14/19 25 07/17/2024 OB PANEL - STD BLOOD WORK hep BS Ag Non-Re active non-re active normal Not Available [address], [address], 07/17/2024 13:57:36 07/14/19 25 07/17/2024 OB PANEL - STD BLOOD WORK hep C Ab Non-Re active non-re active normal Not Available [address], [address], 07/17/2024 13:57:36 07/14/19 25 07/17/2024 OB PANEL - STD BLOOD WORK HIV 1/2 Ag/Ab Non-Re active non-re active normal Not Available [address], [address], 07/17/2024 13:57:36 07/14/19 25 07/17/2024 OB PANEL - STD BLOOD WORK syphilis Ab Non-Re active non-re active normal Not Available [address], [address], 07/17/2024 13:57:36 07/14/19 25 07/17/2024 OB PANEL - STD BLOOD WORK rubella Ab IgG 58.8 IU/mL normal INTER PRETI VE INFOR MATIO N: Rubel la Antib pooja, IgG. < 5.0 IU/mL ..... ..... . Not consi stent with immun ity 5.0 - 9.9 IU/mL ..... . Equiv ocal: Indet ermin ate-R epeat testi ng in 10-14 days may be helpf ul. > or = 10.0 IU/mL ... Consi stent with immun ity The prese nce of Rubel la IgG antib pooja sugge st respo nse to immun izati on or prior /curr ent expos ure to the Rubel la virus . Not Available [facility], [place], [address], 07/17/2024 13:57:36 07/14/19 25 07/17/2024 CT/NG chlamydia trachomatis CT neg negati ve normal This repor t is inten ded for us in clini shyla monit oring and manag ement of patie nts. It is not inten ded for use in medic al-le gal appli catio n. Not Available [facility], [place], [address], 07/17/2024 13:58:12 07/14/19 25 07/17/2024 CT/NG neisseria gonorrhoeae GC neg negati ve normal This repor t is inten ded for us in clini shyla monit oring and manag ement of patie nts. It is not inten ded for use in medic al-le gal appli catio n. Not Available [facility], [place], [address], 07/17/2024 13:58:12 07/14/19 25 07/17/2024 VARIC GHASSAN ZOSTE R VIRUS ANTIB POOJA (IGG) varicella zoster virus antibody (IgG) 16.50 S/co normal Signa l to Cut-o ff S/CO Inter preta tion ----- ---- ----- ----- ----- ----- -- <1.00 Negat kunal - Antib pooja not detec taina > or = 1.00 Posit kunal - Antib pooja detec taina A posit kunal resul t indic ates that the patie nt has antib pooja to VZV but does not diffe renti ate betwe en an activ e or past infec tion. The clini shyla diagn osis must be inter prete d in conju nctio n with the clini shyla signs and sympt oms of the patie nt. This assay relia pili measu res immun ity due to previ ous infec tion but may not be sensi tive enoug h to detec t antib odies induc ed by vacci natio n. Thus, a negat kunal resul t in a vacci nated indiv idual does not neces saril y indic ate susce ptibi lity to VZV infec tion. A more sensi tive test for vacci natio n-ind uced immun ity is Varic ghassan Zoste r Virus Antib pooja Immun ity Scree n, ACIF. Not Available [address], [address], 07/17/2024 14:21:14 07/14/19 25 07/17/2024 HEMOG LOBIN OPATH Y EVALU ATION red blood cell count 4.66 ana on/uL 3.80-5 .10 Not Available [address], [address], 07/17/2024 14:21:15 07/14/19 25 07/17/2024 HEMOG LOBIN OPATH Y EVALU ATION hemoglobin 13.4 g/dL 11.7-1 5.5 Not Available [address], [address], 07/17/2024 14:21:15 07/14/19 25 07/17/2024 HEMOG LOBIN OPATH Y EVALU ATION hematocrit 39.8 % 35.0-4 5.0 Not Available [facility] [address], [address], 07/17/2024 14:21:15 07/14/19 25 07/17/2024 HEMOG LOBIN OPATH Y EVALU ATION MCV 85.4 fL 80.0-1 00.0 Not Available [facility] [address] [place], [address], 07/17/2024 14:21:15 07/14/19 25 07/17/2024 HEMOG LOBIN OPATH Y EVALU ATION MCH 28.8 pg 27.0-3 3.0 Not Available [address] [place], [address], 07/17/2024 14:21:15 07/14/19 25 07/17/2024 HEMOG LOBIN OPATH Y EVALU ATION RDW 12.8 % 11.0-1 5.0 Not Available [address] [place], [address], 07/17/2024 14:21:15 07/14/19 25 07/17/2024 HEMOG LOBIN OPATH Y EVALU ATION hemoglobin A 97.6 % >96.0 Not Available [address], [address], 07/17/2024 14:21:15 07/14/19 25 07/17/2024 HEMOG LOBIN OPATH Y EVALU ATION hemoglobin F <1.0 % <2.0 Not Available [address] [place], [address], 07/17/2024 14:21:15 07/14/19 25 07/17/2024 HEMOG LOBIN OPATH Y EVALU ATION hemoglobin A2 (quant) 2.4 % 2.0-3. 2 Not Available [address], [address], 07/17/2024 14:21:15 07/14/19 25 07/17/2024 HEMOG LOBIN OPATH Y EVALU ATION interpretati on Lucia l pheno type. Lucia l hemog lobin distr ibuti on, no HgS, HgC or other abnor mal hemog lobin obser tawana. Not Available [facility] [address] [address] [place], [address], 07/17/2024 14:21:15 07/14/19 25 07/17/2024 MEASL ES AB (IGG) , IMMUN E STATU S measles Ab (IgG), immune status >300.0 0 AU/mL normal AU/mL Inter preta tion ----- ----- ----- ---- <13.5 0 Not consi stent with immun ity 13.50 -16.4 9 Equiv ocal >16.4 9 Consi stent with immun ity The prese nce of measl es IgG sugge sts immun izati on or past or curre nt infec tion with measl es virus . For addit ional infor leander hogan e refer to http: //[facility].Que stDia gnost ics.c om/fa q/FAQ 162 (This link is being provi ded for infor richard heredia/ educa royal l purpo ses only. ) Not Available [address] [place], [address], 07/17/2024 14:21:16 07/14/19 25 07/17/2024 ANTIB POOJA SCREE N, RBC W/REF L ID, TITER AND AG antibody screen, RBC w/refl id, titer and Ag NO ANTIBO DIES DETECT ED normal Refer ence range No antib odies detec taina This assay is a scree jewel test for the detec tion of red blood cell antib odies . The test is not to be used for pretr ansfu hayden scree jewel or for the medic al manag ement of an alloi mmuni zed pregn tom. Not Available [employer] [facility] [address], [address], 07/17/2024 14:21:16 07/14/19 25 07/17/2024 ABO GROUP AND RH TYPE ABO group AB Not Available [employer] [address], [address], 07/17/2024 14:21:17 07/14/19 25 07/17/2024 ABO GROUP AND RH TYPE Rh type RH(D) POSITI VE For addit ional infor leander hogan e refer to http: //edu milly Dyeria gnost ics.c om/fa q/FAQ 111 (This link is being provi ded for infor richard heredia/ delano crofto ses only. ) Not Available [employer] [facility] [address] , [place], [address], 07/17/2024 14:21:17 07/14/19 25 07/17/2024 CBC (INCL UDES DIFF/ PLT) WBC 10.4 thous and/u L 4.0 - 9.8 high Not Available [address], [address], 07/18/2024 11:52:25 07/14/19 25 07/17/2024 CBC (INCL UDES DIFF/ PLT) RBC 4.7 ana on/uL 3.9 - 4.9 normal Not Available [address], [address], 07/18/2024 11:52:25 07/14/19 25 07/17/2024 CBC (INCL UDES DIFF/ PLT) hemoglobin 13.3 g/dL 11.8 - 14.8 normal Not Available [address], [address], 07/18/2024 11:52:25 07/14/19 25 07/17/2024 CBC (INCL UDES DIFF/ PLT) hematocrit 40.8 % 35.5 - 44.0 normal Not Available [facility] [address] [place] [address], [address], 07/18/2024 11:52:25 07/14/19 25 07/17/2024 CBC (INCL UDES DIFF/ PLT) MCV 87.4 fL 82.0 - 99.0 normal Not Available [address], [address], 07/18/2024 11:52:25 07/14/19 25 07/17/2024 CBC (INCL UDES DIFF/ PLT) MCH 28.5 pg 27.2 - 32.6 normal Not Available [address], [address], 07/18/2024 11:52:25 07/14/19 25 07/17/2024 CBC (INCL UDES DIFF/ PLT) MCHC 32.6 g/dL 31.5 - 35.5 normal Not Available [address], [address], 07/18/2024 11:52:25 07/14/19 25 07/17/2024 CBC (INCL UDES DIFF/ PLT) RDW-CV 12.2 % 11.5 - 14.5 normal Not Available [address], [address], 07/18/2024 11:52:25 07/14/19 25 07/17/2024 CBC (INCL UDES DIFF/ PLT) platelet 293 thous and/u L 140 - 350 normal Not Available [address], [address], 07/18/2024 11:52:25 07/14/19 25 07/17/2024 CBC (INCL UDES DIFF/ PLT) MPV 9.8 fL 9.3 - 12.4 normal Not Available [address], [address], 07/18/2024 11:52:25 07/14/19 25 07/18/2024 MANUA L DIFFE RENTI AL %neutrophil 65 % 34 - 71 normal Not Available [address], [address], 07/18/2024 11:52:26 07/14/19 25 07/18/2024 MANUA L DIFFE RENTI AL %lymphocyte 26 % 19 - 52 normal Not Available [address], [address], 07/18/2024 11:52:26 07/14/19 25 07/18/2024 MANUA L DIFFE RENTI AL %monocyte 6 % 5 - 13 normal Not Available [address] [place], [address], 07/18/2024 11:52:26 07/14/19 25 07/18/2024 MANUA L DIFFE RENTI AL %eosinophil 2 % 1 - 6 normal Not Available [facility] [address] [place], [address], 07/18/2024 11:52:26 07/14/19 25 07/18/2024 MANUA L DIFFE RENTI AL %basophil 1 % 0 - 1 normal Not Available [facility] [address] [place], [address], 07/18/2024 11:52:26 07/14/19 25 07/18/2024 MANUA L DIFFE RENTI AL platelet estimate Consis tent with count Not Available [facility] [address] [place], [address], 07/18/2024 11:52:26 07/14/19 25 07/18/2024 MANUA L DIFFE RENTI AL RBC morphology Normal RBC morpho logy observ ed on periph eral smear. Lucia l RBC morph ology obser tawana on perip heral smear . Not Available [address], [address], 07/18/2024 11:52:26 07/14/19 25 07/18/2024 MANUA L DIFFE RENTI AL smudge cells Presen t Not Available [facility] [address] [place], [address], 07/18/2024 11:52:26 08/12/19 25 08/14/2024 MATER NAL SERUM AFP interpretati on: Scree n negat kunal for open NTD. Not Available [facility] [address], [place], [address], 08/14/2024 18:26:12 08/12/19 25 08/14/2024 MATER NAL SERUM AFP risk for ontd <1 IN 5000 Not Available [facility] [address] [address] [place], [address], 08/14/2024 18:26:12 08/12/19 25 08/14/2024 MATER NAL SERUM AFP AFP, serum 34.7 NG/mL Not Available [facility] [address] [address] [place], [address], 08/14/2024 18:26:12 08/12/19 25 08/14/2024 MATER NAL SERUM AFP AFP MOM 1.31 Not Available [facility] [address] [address] [place], [address], 08/14/2024 18:26:12 08/12/1908/14/2024 MATER NAL SERUM AFP comments: This patie nt's GILBERT (roderick mated date of roxanne reyes) was used to calcu late the gesta royal l age. The AFP test resul t indic ates that this patie nt is scree n negat kunal for open NTD. It shoul d be noted that lucia l test resul ts can never guara ntee the of a lucia l baby and that 2-3% of [facility] rns have some type of physi shyla or menta l defec t, many of which are undet ectab le throu gh any known prena layla diagn ostic techn ique. Not Available [facility] [address] [address] [place], [address], 08/14/2024 18:26:12 08/12/19 25 08/14/2024 MATER NAL SERUM AFP comment This is a scree jewel test, not a diagn ostic test. This risk asses sment repor t is based in part on demog raphi c data provi ded by the order ing physi chetan. Pleas e notif y the labor atory promp tly if any data are incor rect. For yuriy tance with recal culat ions, plevik e call your local [facility] . For yuriy tance with inter preta tion of these resul ts, pleas e conta ct your Local [facility] ezekiel ic couns elor or call 6 [phone] INFO( [phone]). Inter preti ve Cutof fs Scree n Posit kunal for Open NTD: > or = 2.50 adjus taina MOM > or = 1.90 adjus taina MOM for insul in-de pende nt diabe tics > or = 4.00 adjus taina MOM for twins > or = 3.50 adjus taina MOM for twins insul in-de pende nt diabe tics > or = 4.50 adjus taina MOM for tripl ets For addit ional infor leander hogan e refer to http: //[facility] milly parrque stdia gnost ics.c om/fa q/FAQ 74v1 (This link is being provi ded for infor richard heredia/ delano crofto ses only. ) Not Available [address] [address] [place], [address], 08/14/2024 18:26:12 08/12/1908/14/2024 MATER NAL SERUM AFP calc'd gestational age 16.0 weeks Not Available [facility] [address] [address] [place], [address], 08/14/2024 18:26:12 08/12/19 25 08/14/2024 MATER NAL SERUM AFP maternal weight 302 lbs Not Available [address] [address] [place], [address], 08/14/2024 18:26:12 08/12/19 25 08/14/2024 MATER NAL SERUM AFP est'd date of delivery 2024 Not Available [facility] [address] [address] [place], [address], 08/14/2024 18:26:12 08/12/19 25 08/14/2024 MATER NAL SERUM AFP gilbert determined by ULTRAS OUND Not Available [facility] [address] [address] [place], [address], 08/14/2024 18:26:12 08/12/19 25 08/14/2024 MATER NAL SERUM AFP mother's ethnic origin FAHEEM N AMERIC AN Not Available [address] [address] [place], [address], 08/14/2024 18:26:12 08/12/19 25 08/14/2024 MATER NAL SERUM AFP number of fetuses 1 Not Available [address] [address] [place], [address], 08/14/2024 18:26:12 08/12/19 25 08/14/2024 MATER NAL SERUM AFP insulin depend diabetic NO Not Available [address] [address] [place], [address], 08/14/2024 18:26:12 08/12/19 25 08/14/2024 MATER NAL SER[facility] AFP repeat specimen NO Not Available [address] [address] [place], [address], 08/14/2024 18:26:12 08/12/19 25 08/14/2024 MATER NAL SERUM AFP Hx of neural tube defects NO Not Available [address] [address] [place], [address], 08/14/2024 18:26:12 08/12/19 25 08/14/2024 MATER NAL SERUM AFP prev down synd NO Not Available [address] [address] [place], [address], 08/14/2024 18:26:12 08/12/19 25 08/14/2024 MATER NAL SERUM AFP donor egg NO Not Available [address] [address] [place], [address], 08/14/2024 18:26:12 08/12/19 25 08/14/2024 MATER NAL SERUM AFP donor age: egg retrieval NOT GIVEN Not Available [address] [address] [place], [address], 08/14/2024 18:26:12 08/21/19 25 08/20/2024 [facility] [place] [facility] [place] Does NOT meet criter ia normal See PDF for compl ete resul ts. [facility] [place] [facility] itary cance r crite michael asses sment - DOES NOT MEET CRITE MICHAEL Not Available [facility] [address], [place], [address], 08/20/2024 13:09:03 06/15/19 25 06/15/2024 US, obste tric, trans vagin al No observ ation record ed. [email or web address] Brittany [address], [place], [address], 06/18/2024 19:05:50 09/22/19 25 09/21/2024 US, obste tric, trans vagin al No observ ation record ed. swall[facility]avis Not Available 12:51:03 Result Notes None recorded. Problems Name Problem SNOMED Code Status Onset Date Resolution Date Notes Provider Name and Address Organization Details Recorded Time 76533705 Active 2024 Ubaldo Fuller null, [employer] [facility] [employer] [facility] IV 5 10:04:21 Multigravi da of advanced maternal age 902110956 Active 2024 Caprice peng, FIDEL [address] [place], [address], [facility] [facility] IV 5 10:35:30 Morbid obesity 978497327 Active 2024 MFM for anatomy US, Growth US at 32,36 weeks and weekly NST at 36 weeks Caprice peng, [facility] [address] [place], [address], [facility] 5 17:04:51 Hypertensi ve disorder 12236195 Active 2024 labetolol 200 BID , taking LDASA, IOL at 38 weeks Caprice peng, [facility] [address] [place], [address], [facility] IV 17:40:48 Depressed mood 006715157 Active 2024 wellbutrin 200mg Caprice peng, CN [address] [facility], [place], [address], [facility] [employer] [facility] IV 17:41:46 Problem Notes None recorded. Procedures Surgical History Date Name Laterality Status Provider Name and Address Organization Details Recorded Time 10/04/2022 Date of Last Pap Smear completed [facility] IV 08/11/2024 10:31:30 D & C completed [facility] ANTIA [facility] IV 08/11/2024 10:31:40 Imaging Results Imaging Date Name Status LastModified by Organization Details LastModified Time 06/15/2024 US, obstetric, transvaginal completed [email or web address] Brittany [address], [place], [address], 06/18/2024 19:05:50 09/21/2024 US, obstetric, transvaginal completed [email or web address] Information not available 09/23/2024 12:51:03 Procedure Notes None recorded. Medical Equipment None Reported. Allergies Allergen ID Allergen Name Allergen Category Reaction Reaction Severity Criticality Documentation Date Start Date Code Code System Note Provider Name and Address Organization Details Recorded Time 762883 influenza A (H1N1) medicatio n Not available Not available Not available 06/15/2024 [id number] [facility] Ubaldo Fuller [facility] [employer] [facility] IV 10:13:36 [id number] [employer] Not available Not available Not available 08/11/2024 [id number] [facility] Ubaldo Fuller [facility] IV 10:31:02 Medications Name Sig Start Date Stop Date Status Note LastModified by Organization Details LastModified Time silver sulfadiazin e 1 % topical cream APPLY TO THE AFFECTED AREA TWICE DAILY OR WITH EACH DRESSING CHANGE 06/15 completed Not Available Not Available Not Available labetalol 200 mg tablet TAKE 1 TABLET BY MOUTH TWICE DAILY active Not Available Not Available No t Available tretinoin 0.025 % topical cream APPLY TOPICALLY TO FACE DAILY AT BEDTIME FOR ACNE 06/15 completed Not Available Not Available Not Available ondansetron HCl 4 mg tablet TAKE 1 TABLET BY MOUTH EVERY 6 HOURS NEEDED FOR NAUSEA active Not Available Not Available No t Available clindamycin 1 % topical gel APPLY TOPICALLY TO FACE EVERY MORNING FOR ACNE 06/15 completed Not Available Not Available Not Available cephalexin 500 mg capsule 07/14 completed Not Available Not Available Not Available metoprolol succinate ER 25 mg tablet,exte nded release 24 hr 09/07 completed Not Available Not Available Not Available methylpredn isolone 4 mg tablets in a dose pack FOLLOW PACKAGE DIRECTION S 06/15 completed Not Available Not Available Not Available bupropion HCl XL 150 mg 24 hr tablet, extended release active Not Available Not Available Not Available Wellbutrin XL 300 mg 24 hr tablet, extended release Take 1 tablet every day by oral route. 2024 active Not Available Not Available Not Avai lable metoprolol succinate 25 mg 08/11 completed Not Available Not Available Not Available active Not Available Not Avai lable Not Available Zofran (base) 07/14 completed Not Available Not Available Not Available metoprolol succinate ER 25 mg capsule sprinkle, ext. release 24 hr Take 1 capsule every day by oral route. 09/07 completed Not Available Not Available Not Available B6 0.85 mg-folic 200 mcg-B12-cof fee-phospha tidyl oral chewable tablet Take by oral route. 07/14 completed Not Available Not Available Not Available Vitals Date Recorded Body height Body mass index (BMI) Body weight Systolic blood pressure Diastolic blood pressure Provider Name and Address Organization Details Last Updated DateTime 06/15/2024 167.64 cm 48.6 kg/m2 072729.3 g 120 mm[Hg] 75 mm[Hg] Ubaldo [employer] IV 5 10:11:03 Date Recorded Body height Body mass index (BMI) Body weight Systolic blood pressure Diastolic blood pressure Provider Name and Address Organization Details Last Updated DateTime 07/14/2024 167.64 cm 48.5 kg/m2 939046.5 8 g 130 mm[Hg] 80 mm[Hg] Ubaldo Jonny [facility] IV 5 10:06:00 Date Recorded Body height Body mass index (BMI) Body weight Provider Name and Address Organization Details Last Updated DateTime 08/11/2024 167.64 cm 48.6 kg/m2 445591.4600 44 g Ubaldo Fuller [facility] IV 08/11/2024 10:32:07 Date Recorded Systolic blood pressure Diastolic blood pressure Provider Name and Address Organization Details Last Updated DateTime 08/11/2024 140 mm[Hg] 80 mm[Hg] Caprice Thomas, [facility] [address] [place], [address], [facility] 08/11/2024 10:52:08 Date Recorded Body height Body mass index (BMI) Body weight Systolic blood pressure Diastolic blood pressure Provider Name and Address Organization Details Last Updated DateTime 09/07/2024 167.64 cm 49.4 kg/m2 057686.2 7 g 130 mm[Hg] 70 mm[Hg] Ubaldo Fuller [facility] IV 17:17:31 Social History Question Answer Notes LastModified by [employer] ion Details LastModified Time What Is Your Level Of Alcohol Consumption? None [email or web address] Information not available 08/11/2024 If You Are , What Was Your Level Of Alcohol Consumption Prior To ? Occasional [email or web address] Information not available 08/11/2024 Are You Blind Or Do You Have Difficulty Seeing? No [email or web address] Information not available 08/11/2024 Are You Currently Employed? Yes [email or web address] Information not available 06/15/2024 Are You Deaf Or Do You Have Serious Difficulty Hearing? No [email or web address] Information not available 08/11/2024 What Type Of Diet Are You Following? 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 Domestic Partner [email or web address] Information not available 08/11/2024 Are You Sexually Active? Yes [email or web address] Information not available 06/15/2024 Do You Use Any Illicit Or Recreational Drugs? No [email or web address] Information not available 08/11/2024 Sex: Unknown Functional Status Question Answer Note LastModified by Organizat ion Details LastModified Time What is your exercise level? Occasional [email or web address] Information not available 08/11/2024 Mental Status None recorded. Family History Relationship Description Onset Age of this Age Resolved Age Notes LastModified by Organization Details LastModified Time Mother Hypercholest erolemia [email or web address] Not available 2024 10:31:07 Mother Depressive disorder [email or web address] Not available 2024 10:31:07 Mother Hypertensive disorder Not available 2024 10:31:07 Mother Diabetes mellitus [email or web address] Not available 2024 10:31:07 Maternal Grandmother Diabetes mellitus [email or web address] Not available 2024 10:31:07 Sister Depressive disorder [email or web address] Not available 2024 10:31:07 Sister Malignant neoplastic disease [email or web address] Not available 2024 10:31:07 Sister Hypothyroidi sm Not available 2024 10:31:07 Father Hypercholest erolemia [email or web address] Not available 2024 10:31:07 Father Malignant neoplastic disease [email or web address] Not available 2024 10:31:07 Father Hypertensive disorder [email or web address] Not available 2024 10:31:07 Medical History Condition Response Other Cancer N High Blood Pressure Y Colon Cancer N Cytomegalovirus N Hyperthyroidism N MRSA N Blood Transfusion N Herpes (HSV) N Breast Cancer N Lung Cancer N Depression Y Hypothyroidism N Incontinence N Panic Attacks N Neurological Disorder N Deep Vein Thrombosis N Anxiety Disorder Y Autoimmune disease N Arthritis N Tuberculosis/Positive PPD N Shingles N Polycystic Ovarian Syndrome N Infertility N Cervical Cancer N Chlamydia N Hematuria N Stroke N Varicosities N Crohn's Disease N Seasonal allergies N Alzheimer's/Dementia N COPD/Emphysema N HPV/Genital Warts N Endometriosis N IBS (Irritable Bowel Syndrome) N History of Abnormal Pap N High Cholesterol N Liver Disease N Kidney Infection N Fibromyalgia N Ulcer N Kidney Disease N HIV N Gallbladder disease N Sickle Cell Disease/Trait N Von Willebrand disease N ADD/ADHD N Eating Disorder N Anemia N Diabetes Mellitus (non-insulin dependent ) N Ovarian Problems N Multiple Sclerosis N Gonorrhea N Frequent Urinary Tract infections N Osteopenia N Headaches/migraines N GERD (reflux) N Ovarian Cancer N Diabetes (insulin dependent) N Seizures/Epilepsy N Breast Problems N Fibroids N Heart Attack N Asthma N Lupus N Endometrial Cancer N Rubella N Blood Clotting Disorder N Bipolar Disorder N Diabetes Mellitus (during ) N Ulcerative Colitis N Hepatitis N Heart Disease N Pulmonary Embolism N RPR N Chicken Pox N Osteoporosis N Gynecological History Statement/Question Response Date of Last Colonoscopy Flow Moderate Frequency of Cycle (Q days) Irregular Date of LMP 03/18/2024 Most Recent Bone Density Date of Last Pap Smear 10/04/2022 Duration of Flow (days) Irregular Most Recent Mammogram Current Control Method Age at Menarche 8 Obstetrics History GPAL:G 1 P 0 0 0 0 Past Encounters Encounter ID Performer Location Encounter Start Date Encounter Closed Date Diagnosis/Indication Diagnosis SNOMED-CT Code Diagnosis ICD10 Code Diagnosis Note [id number] Caprice Cortez is, [facility] [address] [place] [address] 06/15/2024 09:31:11 06/16/2024 13:48:25 Missed period 24926730 N92.6 dated by US GILBERT 01/26/25AMA will start LDASABMI 48 will need serial growth USCHTN-on metropolol will need baseline HELLP labs with IOB labs [id number] Caprice Dana is, [facility] [address] [place] [address] 07/14/2024 10:02:39 07/14/2024 13:01:43 Gestation period, 12 weeks 48939282 Z3A.12 First trim yinka 84103215 Z34.01 screening 2437 12288 Z36.0 Carrier de tection, molecular genetics 9120406 Z14.8 Normal 1946407 2 Z34.02 [id number] Caprice YingIsabelle is, [facility] [address] [place] [address] 08/11/2024 10:27:05 08/11/2024 12:02:49 Gestation period, 15 weeks 6000834 Z3A.15 Normal 2173951 2 Z34.82 Alpha-feto protein blood test status 537190087 Z36.1 Chronic hy pertension complicating AND/OR reason for care during 02402530 O10.919 Morbid obesity 306749772 E66.01 [id number] Caprice MakierIsabelle is, [facility] [address] [place] [address] 09/07/2024 17:09:35 09/07/2024 17:49:53 Gestation period, 19 weeks 65177580 Z3A.19 High risk 4720 0007 O09.91 Hypertensive disorder 38 593390 I10 Mild depression 96154762 3 F32.A Health Concerns Section Related Observation LastModified by Organization Detai ls LastModified Time None Recorded Concern Status LastModified by Organization Details LastModified Time None Recorded Advance Directives Directive None Recorded Payers Insurance Date Sequence Insurance Name Policy Number Policy Tavera Covered Member ID Tavera Member ID Guarantor Name 10/02/2024 1 [employer] ([employer]) [id number] Jasmin Moody [id number] Jasmin Moody Notes Date Note Type Note Provider Name and Address Organization Details Recorded Time 06/15/2024 text/html Jasmin is a 33 yr old female. Pt is here for confirmation. Pt LMP 03/18/24. Pt last pap was 05/27/22. NO concerns. Pt GILBERT is 01/26/25. Pt had US today. Caprice Thomas CNM [address] [place], [address], [facility] 06/15/2024 18:04:38 07/14/2024 text/html Patient is here today for a routine OB visit. She is currently at {{6 7 8 9 10 11 1 2* 13 14 15 16 17 18 19 20 21 22 2 3 24 25 26 27 28 29 30 31 32 33 34 35 36 37 38 39 4 0 41}} weeks gestation. vitamins: {{yes* no}} She {{has has not*}} felt movement.She denies any complaints of the presence of vaginal bleed, leaking fluid, abdominal cramps, nausea, vomiting, headache or visual disturbances. Pt states she has had some nausea. Pt c/o vagina pain. Caprice Thomas CNM [address] [place], [address], [employer] [facility] IV 07/14/2024 10:37:52 08/11/2024 text/html Patient is here today for a routine OB visit. She is currently at {{6 7 8 9 10 11 1 2 13 14 15 16* 17 18 19 20 21 22 2 3 24 25 26 27 28 29 30 31 32 33 34 35 36 37 38 39 4 0 41}} weeks gestation. vitamins: {{yes* no}} She {{has has not*}} felt movement.She denies any complaints of the presence of vaginal bleed, leaking fluid, abdominal cramps, vomiting, headache or visual disturbances. Pt said she was feeling nauseous. No other concerns. Caprice Thomas CNM [address] [place], [address], [facility] [employer] 08/11/2024 10:57:14 09/07/2024 text/html Patient is here today for a routine OB visit. She is currently at {{6 7 8 9 10 11 1 2 13 14 15 16 17 18 19 20 21 22 23 24 25 26 27 28 2 9 30 31 32 33 34 35 36 37 38 39 40 41 19.6#}} weeks gestation. vitamins: {{yes* no}} She {{has* has not}} felt movement.She denies any complaints of the presence of vaginal bleed, leaking fluid, abdominal cramps, nausea, vomiting, headache or visual disturbances. Pt wants to know if you could adjust her BP, and depression meds. Caprice Thomas CNM [address] [place], [address], [facility] [employer] IV 09/07/2024 17:45:28 OBGyn Episode Ob Episode Information Episode Created Date Number of Fetuses Patient Bloodtype Patient rh Status Prepregnancy Weight lbs Domestic Partner Domestic Partner Phone Father Name Hebrew Cantor Status 07/14/19 25 1 AB Positive OPEN Fetus Data First Name Last Name Admitted to NICU Weight (g) Sex Living Outcome Pediatric Complications Fetus ID Race Codes Race Delivery Type [id number] Problems Problem Notes Problem Name Start Date End Date Resolution Snomed Code Not e Morbid obesity 07/14/2024 553033345 [facility] for anatomy US, Growth US at 32,36 weeks and weekly NST at 36 weeks Multigravida of advanced maternal age 0207/14/2024 059191567 Depressed mood 09/07/2024 007295974 well butrin 200mg Hypertensive disorder 08/11/2024 7260969 3 labetolol 200 BID , taking LDASA, IOL at 38 weeks Gilbert Calculation Initial Gilbert Date Initial Exam Date Initial Exam Provider Initial Ultrasound Date Last Menstrual Period Date Ultra Sound Weeks Gestation 01/26/2025 07/14/2024 06/15/2024 03/18/2024 0 Eighteen To Twenty Week Gilbert Update Ultra Sound Date Fundal Height At Umbil Quickening Date Ultra Sound Latest Weeks Gestation Final Gilbert Confirmed By Final Gilbert Confirmed Date Final Gilbert Date Ultra Sound Latest Days Gestation 0 0 Pre- Flowsheet Flowsheet Date 07/14/2024 Linder Score Blood Edema Fundus Height Fundus Units Glucose Ketones Leukocytes Nitrite Labor Signs Protein Cervic Dilation Cervic Effacement Cervic Station none Cramping neg Type Weight in lbs Pre/Post Dialysis Refused With clothes 300.320211310831 BP Diastolic BP Location Tested BP Systolic BP Type 80 130 sitting Fetus Heart Rate Present A 153 Fetus Movement A No Comments IOB with [employer] today Flowsheet Date 08/11/2024 Linder Score Blood Edema Fundus Height Fundus Units Glucose Ketones Leukocytes Nitrite Labor Signs Protein Cervic Dilation Cervic Effacement Cervic Station Type Weight in lbs Pre/Post Dialysis Refused With clothes 301.496230271784 BP Diastolic BP Location Tested BP Systolic BP Type 80 140 sitting Fetus Heart Rate Present A 148 Fetus Movement A No Comments Will take BP BID if continue s to be elevated will increase meds, has been taking anti-histamines. Referral to [facility] for Anatomy, [facility] today Flowsheet Date 09/07/2024 Linder Score Blood Edema Fundus Height Fundus Units Glucose Ketones Leukocytes Nitrite Labor Signs Protein Cervic Dilation Cervic Effacement Cervic Station none trace Type Weight in lbs Pre/Post Dialysis Refused With clothes 306.255181077670 BP Diastolic BP Location Tested BP Systolic BP Type 70 130 sitting Fetus Heart Rate Present A 145 Fetus Movement A Yes Comments [facility] anatomy today incomplete incrased Wellbutrin and Labetolol Menstrual History Last Menstrual Date Menses Monthly On Bcp Conception Prior Menses Frequency Hcg Plus Date Menarche Onset Age 1003/18/2024 Delivery Information Delivery Date Delivery Type Labor Anesthesia Weeks Gestation Incision Type Labor Labor Length Hrs Delivered By Post Complications Tubal Sterilization Discharge Date Comments Discharge Information Feeding Method Contraceptive Method Maternal HG B and HCT Levels
--- OUTSIDE RECORDS SUMMARY | 2024-10-03 09:15 | XMS_ITS | Clinical Summary ---
Author Organization [facility] Address [address] [place] [address] Care Team Providers Care Dredgemaster Name Role Phone Patricia Mandujano MD Unavailable [phone] Lana Hall NP Primary Care Provider [phone] Allergies Active Allergy Reactions Criticality Noted Date Comments Amlodipine Edema Medium 09/04/2022 Grass Pollen-Perennial [place], Standard Sneezing Low 04/25/2022 Influenza Virus Vaccines [...] in 2 weeks Obesity complicating in second [facility] er 08/25/2024 Overview (09/06/2024): Pre- BMI: Counseling [...] conditions complicating 08/25/2024 Supervision of high-risk , pavan mace 08/25/2024 Overview (09/07/2024): [x] OB consult only, [] Co-management vs. [] Full [facility] Care; [] Red Team [] Blue Team Referring Provider: Deepika Kilpatrick [facility]) [phone] [] or Medicare Insurance [x] Dating Criteria: US [...] [] MOC: [] Method of feeding: [] Accounting Machine Mechanic (specifically which provider): [] PP Depression Discussed: [] PP visits scheduled: Vaccines [] Flu Shot (Sep-Apr): [] COVID vaccine: [] Tdap (27-36wks): [] [...] or Assessment & Plan (06/03/2023 11:57 AM SANDWICH WRAPPER): Procedure reviewed along with risk, benefits and [...] regiment. Assessment & Plan (04/25/2022 8:17 PM SANDWICH WRAPPER): Trial of ambien. Will follow. Mild episode [...] weeks Assessment & Plan (06/07/2022 7:38 AM SANDWICH WRAPPER): Clinically improved, continue current prescription medications, citalopram. Assessment & Plan (04/25/2022 8:17 PM SANDWICH WRAPPER): Worsening, will re-start Celexa. Rx sent. Labs [...] weeks Assessment & Plan (06/07/2022 7:37 AM SANDWICH WRAPPER): Stable. Cont. Current prescription medications, citalopram. Assessment & Plan (04/25/2022 8:16 PM SANDWICH WRAPPER): Worsening, will re-start Celexa. Rx sent. Labs [...] experiencing increased chin hair -follow up with FINANCIAL SALES REPRESENTATIVE Vitamin D deficiency 09/27/2020 Estimated Date of [...] Mixed anxiety and depressive disorder 09/27/2020 06/05/2022 Encounters Date Type Department Care Team Description 09/21/2024 10:00 AM CDT - 09/21/2024 11:59 PM CDT Hospital Encounter [facility] Outpatient Health - Ultrasound [address] [place] [address], 7th Floor, [address] [place] [address] Supervision of high-risk , unspecified trimester Discharge Disposition: Discharge to home or self care 09/07/2024 12:42 PM CDT - 09/07/2024 11:59 PM CDT Hospital Encounter [facility] [address] [place] [address] Supervision of high-risk , unspecified trimester Discharge Disposition: Discharge to home or self care 09/07/2024 10:30 AM CDT Office Visit [facility] Maternal- Medicine [address] [place] [address] 7th [address] [place] [id number] Chronic hypertension affecting (Primary Dx); Supervision of high-risk , unspecified trimester; AMA (advanced maternal age) primigravida 35+, second trimester; Concern for short cervix 09/07/2024 9:30 AM CDT - 09/07/2024 11:59 PM CDT Hospital Encounter [facility] Outpatient Health - Ultrasound [address] [place] [address], 7th Floor, [address] [place] [address] Supervision of high-risk , unspecified trimester Discharge Disposition: Discharge to home or self care 08/24/2024 Telephone [facility] Obstetrics and Gynecology [address] [place] [id number] Simi Clements from Last 3 Months Immunizations Immunization Administration Dates Next Due HPV, Unspecified 05/27/2008 HPV9 10/04/2022 Hep B Vaccine 07/27/1998,03/07/1998,02/01/1998 HiB 06/03/1989 Influenza, Trivalent, IM (MDV) 02/25/2016 Influenza, Unspecified 05/27/2023(Deferr ed: Patient Refused),09/04/2022(Deferred: Patient Refused),05/27/2022(Deferred: Patient Refused),02/24/2021(Deferred: Patient Refused),03/10/2015,03/10/2014 MMR 07/26/1999,01/01/1990 Moderna SARS-CoV-2 Monovalen t Vaccination (12+ YRS) 02/10/2021,01/13/2021 Polio, Unspecified 01/01/1990, 9,1988,1988 Td, Unspecified 10/07/2002 Tdap 10/10/2015, 6,01/12/1993,1989,04/09/1989,1988 Surgical History Surgery Date Site/Laterality Comments WISDOM TOOTH EXTRACTION 05/27/2013 - 05/26/2014 REFRACTIVE SURGERY 05/27/2014 - 05/26/2015 DILATION AND CURETTAGE OF UTERUS 05/27/2019 - 05/26/2020 COLPOSCOPY HYSTEROSCOPY HUI Medical History Medical History Date Comments Hypertension Anxiety Depression Polycystic ovary syndrome Menstrual problem Dysmenorrhea Sciatica Degenerative lumbar disc Family History Medical History Relation Name Comments Breast cancer Cousin Vitoa/chema Maternal Fir st Cousins x2 CKD Father Father Early Father Father Heart disease Father Father Heart failure Father Father Hyperlipidemia Father Father Hypertension Father Father Breast cancer Maternal Grandmother Grandma Cancer Maternal Grandmother Grandma Diabetes type II Maternal Grandmother Grandma Mental illness Maternal Grandmother Grandma Arthritis Mother Mother Depression Mother Mother Diabetes Mother Mother Diabetes type II Mother Mother Hyperlipidemia Mother Mother Hypertension Mother Mother Mental illness Mother Mother Obesity Mother Mother Cancer Sister 1 Kristen Lymphoma Sister 1 Kristen Thyroid disease Sister 2 Javonna Infertile Sister 3 Yumi Depression Sister 4 Sisters Mental illness Sister 5 Sister Relation Name Status Comments Cousin Navonna/chema Alive Father Father Maternal Grandmother Grandma Mother Mother Sister 1 Kristen Sister 2 Javonna Alive Sister 3 Yumi Alive Sister 4 Sisters Sister 5 Sister Social History Tobacco Use Types Packs/Day Years [...] Orientation Straight 09/14/2024 1: 57 PM CDT Obstetrics History Para Term AB IAB SAB Ectopic Multiple Livin g Live Births 1 0 0 0 0 0 0 0 0 0 0 Date Outcome GA Total Labor Labor/2nd/3rd Weight Sex Type Anes PTL Ysabel A1 A5 Name Clin Current Summary Episode Dates Number of Fetuses Estimated Date of Delivery 08/25/2024 - Present (10/03/2024) 01/26/2025 (set by Caprice Arellano MD on 09/07/2024 based on Ultrasound on 06/15/2024) Dating Summary Based On [place] Diff Last Menstrual Period on 03/18/2024 12/23/2024 +4w6d Ultrasound on 06/15/2024 01/26/2025 Working GA:7w6d Vitals Pregravid Weight Height TWG (As of 10/03/2024) Pregrav id BMI 167.6 cm (5' 6 ) Date GA Fund Present FHR Mvmt BP Weight Edema Alb Glu Ket Dil/ Eff/Sta 19w6d Inpatient data not displayed here. See encounter summary. 21w6d Inpatient data not displayed here. See encounter summary. Notes Progress Notes - Office Visi t - 09/07/2024 - GA:19w6d 09/07/2024 - 19w6d - Caprice Morgan MD Maternal Medicine Consult Note Reason for Consult: Obesity, cHTN Requesting Provider: LIDIA Nye Dear COLD MEAT CHEF Deepika Kilpatrick, We had the pleasure of seeing your patient Deborah Moody in our office today. As you know, she is a 34 y.o. at 19w6d by 1st trimester US here today for a consult regarding cHTN and obesity. Today she is doing well. She has no OB complaints. Denies cramping, pelvic pain, vaginal bleeding, abnormal discharge, leakage of fluid. Endorses movement. Taking blood pressure regularly at home, usually normotensive with occasional diastolic values >90s. Reports increased urinary frequency with cramping following completion of urinating. Denies urgency. Denies fevers or lower back pain. Drinking about 80 oz water daily. No changes in vaginal discharge. Past Medical History: Diagnosis Date Anxiety Degenerative lumbar disc Depression Dysmenorrhea Hypertension Menstrual problem Polycystic ovary syndrome Sciatica Past Surgical History: Procedure Laterality Date COLPOSCOPY DILATION AND CURETTAGE OF UTERUS 2019 HYSTEROSCOPY [place] REFRACTIVE SURGERY 2015 WISDOM TOOTH EXTRACTION 2013 Past Gynecologic History: Prior STIs: None History of abnormal pap: Yes, 2009 Last pap smear: 2022, normal Denies history of uterine anomalies or fibroids OB History Para Term AB Living 1 0 0 0 0 0 SAB IAB Ectopic Multiple Live Births 0 0 0 0 0 # Outcome Date GA Lbr Lucio/2nd Weight Sex Type Anes PTL Lv 1 Current Current Outpatient Medications Medication Sig Dispense Refill buPROPion XL (WELLBUTRIN XL) 150 mg 24 hr tablet Take 1 tablet (150 mg total) by mouth every morning 90 tablet 3 cetirizine (ZyrTEC) 10 mg tablet Take 1 tablet (10 mg total) by mouth daily fluticasone propionate (FLONASE) 50 mcg/actuation nasal spray Administer 1 spray into each nostril daily metoprolol XL (TOPROL-XL) 25 mg extended release tablet Take 1 tablet (25 mg total) by mouth daily 90 tablet 3 PNV no.95/ferrous fum/folic ac ( ORAL) Take by mouth MULTIVITAMIN ORAL Take 1 tablet by mouth every other day (Patient not taking: Reported on 09/07/2024) No current facility-administered medications for this visit. Family History: Family History Problem Relation Age of Onset Hyperlipidemia Mother Hypertension Mother Diabetes type II Mother Depression Mother Diabetes Mother Mental illness Mother Obesity Mother Arthritis Mother Hyperlipidemia Father Heart disease Father Hypertension Father Heart failure Father Other (CKD) Father Early Father Lymphoma Sister Cancer Sister Thyroid disease Sister Infertile Sister Depression Sister Mental illness Sister Diabetes type II Maternal Grandmother Breast cancer Maternal Grandmother 68 Cancer Maternal Grandmother Mental illness Maternal Grandmother Breast cancer Cousin Maternal First Cousins x2 Neural tube defects: First cousin with hydrocephalus Down syndrome or other chromosomal anomalies: No Hemophilia, sickle cell, bleeding/clotting disorder: No Muscular dystrophy: No Cystic fibrosis: No Intellectual disability or Fragile X: No Sumner disease: No Other defects or genetic disorders: No Allergies Allergen Reactions Influenza Virus Vaccines Shortness of breath Lisinopril Angioedema Amlodipine Edema Grass Pollen-Perennial [place], Standard Sneezing Metformin Diarrhea Tree Nut Itching Throat and skin itching Social History Tobacco Use Smoking status: Never Smokeless tobacco: Never Substance and Sexual Activity Drug use: Never Comment: 2 drink tolerence, mj, pills or drugs. 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 [employer] Lives with parter Smoke cigarettes, cigars, E-cigs: No Beer, wine, or liquor: No Street drugs/marijuana: No Dating: G[place]BERT of Estimated Date of Delivery: 1st trimester US completed 06/15/2024 c/w 7w6d, LMP 03/18/2024 Dated by 1st trimester US GILBERT 01/26/2025 Review of Systems Review of systems per HPI and otherwise all systems are negative Physical Exam Vitals BP 129/84 (BP Location: Left arm, Patient Position: Sitting) Pulse 107 Ht 167.6 cm (5' 6 ) Wt (!) 307 lb (139.3 kg) LMP 03/18/2024 SpO2 99% BMI 49.55 kg/m General: well appearing, no apparent distress The rest of the exam was deferred due to the consultative nature of this visit. Lungs: Breathing comfortably on room air Abdomen: soft, gravid Extremities: warm and well perfused Ultrasound 09/07/2024: IUP at 19w6d EFW 341g (66%), breech, normal MYA FHR 150. Specialized anatomy incomplete (needs axial spine) otherwise normal within the limits of US. CL 26.1mm Assessment: Ms. Deborah Moody is a grace 34 y.o. at 19w6d here today for a consult regarding: Recommendations: Problem Concern for short cervix - Anatomy US with CL 26.1mm, no contractions Discussed cervix is the lower limited of normal for cervical length. Discussed possible increased risk of delivery with CL <25mm. Reviewed role of CL screening and possible interventions such as vaginal progesterone and cerclage if cervix was <10mm or dilated. [] Repeat CL in 2 weeks [place] (Advanced Maternal Age) Primigravida 35+, Second Trimester Age at GILBERT: 34 Counseling 09/06/2024: We [...] dose ASA starting at 12 weeks Chronic Hypertension Affecting History: Diagnosed at age 12, Diagnosis: Pre- [...] earlier delivery for uncontrolled hypertension or preeclampsia) Supervision of High-Risk , Second Trimester [x] OB consult only, [] Co-management vs. [] Full [facility] Care; [] Red Team [] Blue Team Referring Provider: Deepika Kilpatrick [facility]) [phone] [] [place] or Medicare Insurance [x] Dating Criteria: US [...] [] MOC: [] Method of feeding: [] Accounting Machine Mechanic (specifically which provider): [] PP Depression Discussed: [] PP visits scheduled: Vaccines [] Flu Shot (Sep-Dec): [] COVID vaccine: [] Tdap (27-36wks): [] RSV vaccine (32-36wks): [] PP HPV vaccine counseling (<=26 yo): Alpha Thalassemia Silent Carrier Discussed carrier screening results and additional workup with partner testing to determine risk of alpha thalassemia. Declined genetic counseling and partner testing. Generalized Anxiety Disorder Current regimen: Wellbutrin 150mg daily No specific [...] Alert pediatrics at delivery regarding maternal medication We have scheduled her to return in 2 weeks for CL screening/anatomy completion with MFM visit to follow for blood pressure medication titration. Thank you for the opportunity to be involved in the care of your patient. Should you have any further questions or concerns, please do not hesitate to call us. She was seen and examined with Dr. Healy who is in agreement with the documented assessment and plan. Caprice Arellano MD [facility] Fellow Cosigned by Lana Healy MD at 09/08/2024 9:23 PM CDT Associated attestation - Lana Healy MD - 09/08/2024 9:23 PM CDT Attending Attestation It was my pleasure to see your patient today with our Maternal Medicine Fellow. I have personally seen and evaluated the patient, reviewed the documentation, and agree with the fellow's assessment and plan. Lana Healy MD Rope Laying Machine Operator Division of Maternal Medicine Progress Notes - Abstract - 08/25/2024 - GA:18w0d 08/25/2024 - 18w0d - Dara Guo RMA Current OB records are under media tab. PCP records are in Epic. Most recent visit was 10/14/23. Last Filed Vital Signs Vital Sign Reading [...] 09/07/2024 11:03 AM CDT Plan of Treatment Health Maintenance Due Date Last Done Comments HPV Vaccines (3 - 3-dose series) 12/27/2022 10/04/2022, 05/27/2008 Regular Well Visit/Exam 18-64 10/05/2023 10/04/2022, 06/05/2022 Covid-19 Vaccine ( season) 2024 05/08/2022, 02/10/2021, 01/13/2021 Depression Screening 10/13/2024 10/14/2023, 09/16/2023, 08/26/2023, Additional history exists Influenza Vaccine (Season Ended) 2025 02/25/2016, 03/10/2015, 03/10/2014 DTaP/Tdap/Td Vaccine (3 - Td or Tdap) 10/09/2025 10/10/2015, 05/27/2015, 10/07/2002, Additional history exists Cervical Cancer Screening 10/05/2027 10/04/2022 Hepatitis B Screening Completed 07/27/1998 , 03/07/1998, 02/01/1998 Hepatitis C Screening Completed 07/14/2024, 023 Pneumococcal vaccine <65 Aged Out No longer eligible based on patient's age to complete this topic Varicella Vaccines Discontinued Procedures Procedure Name Priority Date/Time Associated Diagnosis [...] of 27 mm which is stable andnormal. us Lana Healy MD IMG OB US PROCEDURES Final Result * Urine culture Urine, clean voided (09/07/2024 2:27 PM CDT) Report Final Report: Less than 100,000 colonies/mL (clinically insignificant growth based on current clinical standards) Organism (CLINICALLY INSIGNIFICANT GROWTH [facility] Urine, clean voided 09/07/2024 2:27 PM CDT 09/07/2024 2:51 PM CDT Narrative [facility] - 09/08/2024 4:21 PM CDT Testing performed by [facility] Microbiology Laboratory ([phone]) Lana Healy MD LAB MICROBIOLOGY - GENERAL ORDERABLES Final Result Performing Organization Address [facility] Co de Phone Number [facility] Department [place] [address] * Urinalysis reflex to microscopic (09/07/2024 12:42 PM CDT) Color, ur Yellow Yellow Clarity, ur Clear Clear [facility] Specific gravity, ur 1.021 1.003 - 1.030 [facility] pH, urine 6.5 [facility] Comment: Interpretive Data U rine pH is affected by diet, medications, systemic acid-base disturbances, and renal tubular function. pH may affect urinary stone formation. For example, urine pH below 6.0 may help reduce the tendency for calcium phosphate stones and pH greater than 6.0 may reduce the tendency for uric acid stone formation. Source: [facility] Current Interpretive Data was last revised on 2017 Protein, ur ql Trace Negative [facility] Glucose, ur ql Negative Negative [facility] Ketones, ur Negative Negative [facility] Bilirubin, ur Negative Negative [facility] Blood, ur Negative Negative [facility] Urobilinogen, ur <2.0 <2.0 mg/dL [facility] Nitrite, ur Negative Negative [facility] Leukocyte esterase, ur Negative Negative [facility] UA reflex comment Reflex conditions for microscopic UA not met. [facility] Urine 09/07/2024 12:4 2 PM CDT 09/07/2024 2:29 PM CDT Lana Healy MD LAB URINE ORDERABLES Final Result Performing Organization Address City/[facility]/ZIP Co de Phone Number [facility] Department [place] [address] * Protein / creatinine ratio, urine, random (09/07/2024 12:42 PM CDT) Pathologist [facility] Protein, ur, quant 18.5 mg/dL Comment: Interpretive Data No reference range established. Current interpretive data was last revised 2018. Creatinine Ur 269.5 mg/dL [facility] Comment: Interpretive Data No reference range established. Current interpretive data was last revised 2018. Protein/creatinin e ratio 68.6 0.0 - 180.0 mg/g CR [facility] Urine 09/07/2024 12:4 2 PM CDT 09/07/2024 4:03 PM CDT us Lana Healy MD LAB URINE ORDERABLES Final Result Performing Organization Address City/State/[facility] Co de Phone Number [facility] Department [place] [address] * US Ob Detail Anatomy Single Or First Gestation (09/07/2024 9:49 AM CDT) Pathologist [facility] Fetus# Fetus1 VIEWPOINT Estimated Weight 341 g&grams [...] Nonreactive Nonreactive , Invalid Blood Deepika Kilpatrick COLD MEAT CHEF LAB MICROBIOLOGY - GENERAL OR DERABLES Final Result * SMA carrier screen (07/14/2024) SCRIBED SMA negative Result [facility] Deepika Kilpatrick LAB GENETIC TESTING Final Res ult * Hemoglobin analysis by electrophoresis (07/14/2024) Scribed Hemoglobin Electrophoresis Normal Blood Result [facility] Deepika Kilpatrick LAB BLOOD ORDERABLES Final Re sult * Hepatitis C antibody Blood (07/14/2024) SCRIBED HCV ab non-reacti ve Blood Result [facility] Deepika Kilpatrick NP LAB MICROBIOLOGY - GENERAL OR DERABLES Final Result * Cystic fibrosis diagnostic study (07/14/2024) SCRIBED CF negative Blood Result [facility] Deepika Kilpatrick LAB BLOOD ORDERABLES Final Re sult * ABO/Rh (07/14/2024) SCRIBED ABO/Rh AB+ Blood Result [facility] Deepika Kilpatrick LAB BLOOD BANK TEST ORDERABLE S Final Result * Rubella IgG antibody Blood (07/14/2024) Rubella IgG Scribed Immune Blood Deepika Kilpatrick NP LAB MICROBIOLOGY - GENERAL OR DERABLES Final Result * RPR Blood (07/14/2024) [facility] SCRIBED RPR Non-Reacti ve Non-Reacti ve Blood Deepika Kilpatrick NP LAB MICROBIOLOGY - GENERAL OR DERABLES Final Result * Hepatitis B Surface Antigen Blood (07/14/2024) Pathologist [facility] SCRIBED HBsAg Nonreactive Nonreactive , Invalid Blood Deepika Kilpatrick NP LAB MICROBIOLOGY - GENERAL OR DERABLES Final Result * CBC without differential (07/14/2024) [facility] Hct 40.8 Hgb 13.3 Plt 293 Blood Deepika Kilpatrick NP LAB BLOOD ORDERABLES Final Re sult * Antibody screen (07/14/2024) [facility] SCRIBED Indirect Antiglobulin negative Blood Result [facility] Deepika Kilpatrick NP LAB BLOOD BANK TEST ORDERABLE S Final Result * Chlamydia trachomatis culture (07/14/2024) [facility] SCRIBED Chlamydia culture negative Deepika Kilpatrick NP LAB MICROBIOLOGY - GENERAL OR DERABLES Final Result * Urine culture (07/14/2024) [facility] SCRIBED Urine culture no growth Deepika Kilpatrick NP LAB MICROBIOLOGY - GENERAL OR DERABLES Final Result * N. gonorrhoeae culture (07/14/2024) [facility] SCRIBED Gonorrhea culture negative Result [facility] Deepika Kilpatrick NP LAB MICROBIOLOGY - GENERAL OR DERABLES Final Result * Varicella Zoster IgG antibody Blood (07/14/2024) SCRIBED Varicella Zoster, IgG Positive [facility] - GENERAL OR DERABLES Final Result * Hemoglobin A1c (07/14/2024) SCRIBED Hemoglobin A1c 5.0 % [facility] Final Re sult * Pap and High Risk HPV, reflex to Genotyping (10/04/2022 8:56 AM CDT) Pap test 10/04/2022 8:56 AM CDT 10/04/2022 8:56 AM CDT Narrative 10/08/2022 1:54 PM CDT [facility] Department of Pathology [address] [place] [address] Final Report with Addendum Note to Patients: [...] the details. Patient Name: DEBORAH MOODY Address: [address] [place] [address] Gender: F : 1990 (Age: 32) Service: Location: N : [id number] [facility] #: [id number] Patient Type: SPECIMEN Taken: 10/04/2022 Received: 10/04/2022 Accessioned:: 10/05/2022 Reported: 10/08/2022 Physician(s): Tae Oquendo M.D. Diagnosis: SOURCE OF SPECIMEN SCREENING THIN PREP IMAGED PAP w/ HPV: STATEMENT OF ADEQUACY - Satisfactory for evaluation; endocervical/transformation zone component present GENERAL CATEGORIZATION: - Negative for intraepithelial lesion or malignancy MARKO Alberts(ASCP) Report Electronically Reviewed and Signed Out By MARKO Alberts(ASCP) 10/08/2022 13:54:27Addenda: HPV Test Interpretation NEGATIVE for types 16, 18, 31, 33, 35, 39, 45, 51, 52, 56, 58, 59, 66 and 68. Test performed utilizing Gen-Probe Aptima assay. MARKO Cedeno(ASCP)Report Electronically Reviewed and Signed Out By MARKO Cedeno(ASCP) 10/08/2022 11:52:16 Specimen(s) Received: A: SCREENING THIN [...] determined by the Surgical Pathology Department at [facility] as part of an ongoing quality control representative program and in compliance with federally mandated [...] characteristics determined by the Surgical Pathology Department [facility]. It has not been cleared or approved by the U. S. Food and Drug Administration. Patricia Mandujano MD LAB CYTOLOGY ORDERA BLES Final Result from Last 3 Months or Most Recently Relevant to Health Maintenance Insurance [employer] Address: [facility] [id number] [place] [address] [place] PREFERRED [place] HMO/POS [employer]NA [facility] Care Teams Dredgemaster Relationship Specialty Start Date End Date Lana Hall NP [address] [facility] [address] [place] [address] PCP - General Family Medicine 10/14/23 Patricia Mandujano MD Consulting Physician Obstetrics and Gynecology 06/05/22
--- NOTE | 2024-10-03 09:22 | PC.NURSE ---
Pt. states she has had htn her entire and prior to her . She did not take her medication this morning.
[2024-10-03 10:04] VITALS: BP 148/95; PULSE 94; RESP 16; O2SAT 100
--- NOTE | 2024-10-03 10:29 | ED.UPPEXIN ---
HPI - Extremity Injury (Upper) General Chief Complaint: Extremity Injury, Upper Stated Complaint: R. shoulder pain Time Seen by Provider: 10/03/24 10:27 Source: patient Mode of arrival: ambulatory Limitations: no limitations History of Present Illness HPI narrative: 34 YEARS OLD FEMALE CAME TO THE ED COMPLAINING OF RIGHT SHOULDER PAIN STARTED 3 DAYS AGO. PATIENT REPORT SLIPPING ON A HARDWOOD FLOOR AND FALLING FORWARD ON A BED LANDED ON THE RIGHT FOREARM. DENIES INJURY AT THAT TIME. TWO DAYS LATER STARTED HAVING PAIN AT THE RIGHT SHOULDER WORSE WITH MOVEMENT, BETTER REMAINING STILL, LIMITED RANGE OF MOTION. SHE DENIES ANY FEVER OR CHILLS OR NAUSEA OR VOMITING. HISTORY OF SIMILAR SYMPTOMS YEARS AGO REQUIRED PHYSICAL THERAPY. THE PATIENT IS 23 WEEKS Related Data Allergies Allergy/AdvReac Type Severity Reaction Status Date / Time RANJANA Inhibitors Allergy Mild Cough Verified 10/03/24 10:07 influenza virus vaccine, AdvReac Sweating Verified 10/03/24 10:07 specific Review of Systems Review of Systems: All systems reviewed & are unremarkable except as noted in HPI and below Exam Narrative: GENERAL APPEARANCE: WELL-DEVELOPED, WELL-NOURISHED SKIN: NORMAL COLOR HEAD: NORMOCEPHALIC, NONTRAUMATIC EYES: CLEAR CONJUNCTIVA ENT: OROPHARYNX NORMAL, EARS NORMAL, NOSE NORMAL NECK: SUPPLE, NONTENDER CHEST AND RESPIRATORY: AIRWAY PATENT, NO RESPIRATORY DISTRESS, NO ACCESSORY MUSCLE USE HEART: REGULAR RATE/RHYTHM ABDOMEN: SOFT, NONTENDER, NO ORGANOMEGALY, QUIET BOWEL SOUNDS VASCULAR: NORMAL PERIPHERAL PULSES, NORMAL CAPILLARY REFILL. MUSCULOSKELETAL: DIFFUSE TENDERNESS RIGHT SHOULDER, LIMITED RANGE OF MOTION, PATIENT ABLE TO ABDUCT HER SHOULDER 45 DEGREE ACTIVELY, PASSIVELY UP TO 180 DEGREE. DIFFUSE TENDERNESS, NO DEFORMITY, NO SWELLING, NO RASH, NO BRUISES NEUROLOGIC: ALERT AND ORIENTED ?3, OUTDOOR EMERGENCY CARE TECHNICIAN IS NORMAL TESTED, NO GROSS MOTOR DEFICIT Course Vital Signs Vital signs: Vital Signs Temperature 36.9 C 10/03/24 09:15 Pulse Rate 101 H 10/03/24 09:15 Respiratory Rate 16 10/03/24 09:15 Blood Pressure 152/92 H 10/03/24 09:15 Pulse Oximetry 100 10/03/24 09:15 Oxygen Delivery Room Air 10/03/24 09:15 Temperature 36.9 C 10/03/24 09:15 Pulse Rate 94 10/03/24 10:04 Respiratory Rate 16 10/03/24 10:04 Blood Pressure 148/95 H 10/03/24 10:04 Pulse Oximetry 100 10/03/24 10:04 Oxygen Delivery Room Air 10/03/24 09:15 MDM - Extremity Injury (Upper) MDM Narrative Medical decision making narrative: DIFFERENTIAL DIAGNOSIS INCLUDE STRAIN/SPRAIN, LESS LIKELY FRACTURE X-RAY OF THE RIGHT SHOULDER SHOWED NO ACUTE ABNORMALITY ROTATOR CUFF SYNDROME IS MY CONCERN. DISCHARGED ON DICLOFENAC, FOLLOW-UP WITH ORTHO. Differential Diagnosis Differential diagnosis: Likely other ( ABOVE) Imaging Data Radiologist's impression: Impressions Shoulder X-Ray 10/03/24 11:20 IMPRESSION: Small anterior subacromial spur. No acute osseous abnormality. Critical Care Time Critical Care Time Critical Care Time: No Discharge Plan Discharge Clinical Impression: Rotator cuff syndrome of right shoulder Patient Disposition: Home Condition: Stable Instructions: Rotator Cuff Injury (ED), Rotator Cuff Injury Exercises (DC) Additional Instructions: RETURN IF SYMPTOMS ARE WORSENING , CALL DR FLOR FOR APPOINTMENT, TAKE TYLENOL NEEDED FOR ACHES AND PAIN, CONTINUE HOME MEDICATIONS. Patient Language: Indonesian Prescriptions: No Action metoclopramide HCl [Reglan] 5 mg tablet 5 mg PO DAILY Qty: 10 0RF Follow-up/Referrals: Isabel,Lana Boss APRN [Primary Care Provider] - Stand Alone Forms: Work/School Release IP
--- OUTSIDE RECORDS SUMMARY | 2024-10-03 10:42 | XMS_ITS | Referral Summary ---
Author Organization [facility] Address [address] [place] [address] Care Team Providers Care Air Hoist Operator Name Role Phone Patricia Mandujano MD Unavailable [phone] Lana Hall NP Primary Care Provider [phone] Encounters Date Type Department Care Team Description 09/21/2024 10:00 AM CDT - 09/21/2024 11:59 PM CDT Hospital Encounter [facility] - Ultrasound [address], [address], [address] [place] [facility] [place] [address] Supervision of high-risk , unspecified trimester Discharge Disposition: Discharge to home or self care 09/07/2024 12:42 PM CDT - 09/07/2024 11:59 PM CDT Hospital Encounter [address] [id number] Supervision of high-risk , unspecified trimester Discharge Disposition: Discharge to home or self care 09/07/2024 10:30 AM CDT Office Visit [facility] [address] [place] [address] Outpatient Health 7th Floor [address] [place] [address] Chronic hypertension affecting (Primary Dx); Supervision of high-risk , unspecified trimester; AMA (advanced maternal age) primigravida 35+, second trimester; Concern for short cervix 09/07/2024 9:30 AM CDT - 09/07/2024 11:59 PM CDT Hospital Encounter [facility] Outpatient Health - Ultrasound [address], [address], [address] [place] [facility] [place] [address] Supervision of high-risk , unspecified trimester Discharge Disposition: Discharge to home or self care 08/24/2024 Telephone [facility] Obstetrics and Gynecology [facility] [place] [address] Simi Clements from Last 3 Months Allergies Active Allergy Reactions Criticality Noted Date Comments Amlodipine Edema Medium 09/04/2022 Grass Pollen-Perennial [place], Standard Sneezing Low 04/25/2022 Influenza Virus Vaccines [...] [] Blue Team Referring Provider: Deepika Kilpatrick [facility]) [phone] [] [employer] or Medicare Insurance [x] Dating Criteria: [place] [...] [] MOC: [] Method of feeding: [] Marketing Assistant Manager (specifically which provider): [] PP Depression Discussed: [...] or Assessment & Plan (06/03/2023 11:57 AM TECHNICAL CONSULTANT): Procedure reviewed along with risk, benefits and [...] regiment. Assessment & Plan (04/25/2022 8:17 PM TECHNICAL CONSULTANT): Trial of ambien. Will follow. Mild episode [...] weeks Assessment & Plan (06/07/2022 7:38 AM TECHNICAL CONSULTANT): Clinically improved, continue current prescription medications, citalopram. Assessment & Plan (04/25/2022 8:17 PM TECHNICAL CONSULTANT): Worsening, will re-start Celexa. Rx sent. Labs [...] weeks Assessment & Plan (06/07/2022 7:37 AM TECHNICAL CONSULTANT): Stable. Cont. Current prescription medications, citalopram. Assessment & Plan (04/25/2022 8:16 PM TECHNICAL CONSULTANT): Worsening, will re-start Celexa. Rx sent. Labs [...] experiencing increased chin hair -follow up with CREW PERSON Vitamin D deficiency 09/27/2020 Estimated Date of [...] healthy weight. She had diarrhea with metformin [facility] [facility] [place]. The patient was encouraged to be in [...] clinical standards) Organism (CLINICALLY INSIGNIFICANT GROWTH [facility] Urine, clean voided 09/07/2024 2:27 PM CDT 09/07/2024 2:51 PM CDT Narrative [facility] - 09/08/2024 4:21 PM CDT Testing performed by [facility] ([phone]) Lana Healy MD LAB MICROBIOLOGY - GENERAL ORDERABLES Final Result [facility] Department [place] [address] * Urinalysis reflex to microscopic (09/07/2024 12:42 PM CDT) Color, ur Yellow Yellow Clarity, ur Clear Clear [facility] Specific gravity, ur 1.021 1.003 - 1.030 [facility] pH, urine 6.5 [facility] Comment: Interpretive Data U rine pH is affected by diet, medications, systemic acid-base disturbances, and renal tubular function. pH may affect urinary stone formation. For example, urine pH below 6.0 may help reduce the tendency for calcium phosphate stones and pH greater than 6.0 may reduce the tendency for uric acid stone formation. Source: [facility] Current Interpretive Data was last revised on 2017 Protein, ur ql Trace Negative [facility] Glucose, ur ql Negative Negative [facility] Ketones, ur Negative Negative [facility] Bilirubin, ur Negative Negative [facility] Blood, ur Negative Negative [facility] Urobilinogen, ur <2.0 <2.0 mg/dL [facility] Nitrite, ur Negative Negative [facility] Leukocyte esterase, ur Negative Negative [facility] UA reflex comment Reflex conditions for microscopic UA not met. [facility] Urine 09/07/2024 12:4 2 PM CDT 09/07/2024 2:29 PM CDT Lana Healy MD LAB URINE ORDERABLES Final Result Performing Organization Address [facility] Co de Phone Number [facility] [place] [employer] [place] [address] * Protein / creatinine ratio, urine, random (09/07/2024 12:42 PM CDT) Protein, ur, quant 18.5 mg/dL Comment: Interpretive Data No reference range established. Current interpretive data was last revised 2018. Creatinine Ur 269.5 mg/dL [facility] Comment: Interpretive Data No reference range established. Current interpretive data was last revised 2018. Protein/creatinin e ratio 68.6 0.0 - 180.0 mg/g CR [facility] Urine 09/07/2024 12:4 2 PM CDT 09/07/2024 4:03 PM CDT us Lana Healy MD LAB URINE ORDERABLES Final Result Performing Organization Address City/[facility]/ZIP Co de Phone Number [facility] [place] [address] * US Ob Detail Anatomy Single Or [...] HCV ab non-reacti ve Blood Deepika Kilpatrick [facility] LAB MICROBIOLOGY - GENERAL OR DERABLES Final Result * Cystic fibrosis diagnostic study (07/14/2024) SCRIBED CF negative Blood Deepika Kilpatrick [facility] LAB BLOOD ORDERABLES Final Re sult * ABO/Rh (07/14/2024) Pathologist [facility] SCRIBED ABO/Rh AB+ Blood Deepika Kilpatrick LAB BLOOD BANK TEST ORDERABLE S Final Result * Rubella IgG antibody Blood (07/14/2024) Pathologist [facility] Rubella IgG Scribed Immune Blood Deepika Kilpatrick NP LAB MICROBIOLOGY - GENERAL OR DERABLES Final Result * RPR Blood (07/14/2024) Pathologist [facility] SCRIBED RPR Non-Reacti ve Non-Reacti ve Blood Deepika Kilpatrick NP LAB MICROBIOLOGY - GENERAL OR DERABLES Final Result * Hepatitis B Surface Antigen Blood (07/14/2024) SCRIBED HBsAg Nonreactive Nonreactive , Invalid Blood Result [facility] Deepika Kilpatrick NP LAB MICROBIOLOGY - GENERAL OR DERABLES Final Result * CBC without differential (07/14/2024) Pathologist [facility] Hct 40.8 Hgb 13.3 Plt 293 Blood [...] SCRIBED Urine culture no growth Deepika Kilpatrick [facility] LAB MICROBIOLOGY - GENERAL OR DERABLES Final Result * N. gonorrhoeae culture (07/14/2024) SCRIBED Gonorrhea culture negative Deepika Kilpatrick [facility] [facility] LAB MICROBIOLOGY - GENERAL OR DERABLES Final [...] AM CDT Narrative 10/08/2022 1:54 PM CDT [facility] Department of Pathology [address] [place], [place] [id number] Final Report with Addendum Note to Patients: [...] the details. Patient Name: DEBORAH MOODY Address: [address] [place] [address] Gender: F : 1990 (Age: 32) Service: Location: [facility] #: [id number] Patient Type: SPECIMEN Taken: 10/04/2022 Received: 10/04/2022 [...] determined by the Surgical Pathology Department at [facility] as part of an ongoing food quality technician program and in compliance with federally mandated [...] characteristics determined by the Surgical Pathology Department [facility]. It has not been cleared or approved by the [place]. [place]. Food and Drug Administration. Patricia Mandujano MD LAB CYTOLOGY ORDERA BLES Final Result from Last 3 Months or Most Recently Relevant to Health Maintenance Insurance [facility] [employer]ANS Address: [facility] [id number] [place] [address] [employer] [place] PREFERRED [employer] COVENTRY HMO/POS [facility] Care Teams Air Hoist Operator Relationship Specialty Start Date End Date Lana Hall NP [address] [address] PCP - General Family Medicine 10/14/23 Patricia Mandujano MD Consulting Physician Obstetrics and Gynecology 06/05/22
--- OUTSIDE RECORDS SUMMARY | 2024-10-03 10:42 | XMS_ITS | Clinical Summary ---
Author Organization [facility] Address [address] [place] [address] Care Team Providers Care Supervisor Plastic Sheets Name Role Phone Patricia Mandujano MD Unavailable [phone] Lana Hall NP Primary Care Provider [phone] Allergies Active Allergy Reactions Criticality Noted Date Comments Amlodipine Edema Medium 09/04/2022 Grass Pollen-Perennial [place], Standard Sneezing Low 04/25/2022 Influenza Virus Vaccines [...] in 2 weeks Obesity complicating in second [facility] er 08/25/2024 Overview (09/06/2024): Pre- BMI: [...] consult only, [] Co-management vs. [] Full [facility] Care; [] Red Team [] Blue Team Referring Provider: Deepika Kilpatrick [facility]) [phone] [] or Medicare Insurance [x] Dating Criteria: [...] [] MOC: [] Method of feeding: [] Manager Architecture (specifically which provider): [] PP Depression Discussed: [...] or Assessment & Plan (06/03/2023 11:57 AM SERVICES PROGRAM MANAGER): Procedure reviewed along with risk, benefits and [...] regiment. Assessment & Plan (04/25/2022 8:17 PM SERVICES PROGRAM MANAGER): Trial of ambien. Will follow. Mild episode [...] weeks Assessment & Plan (06/07/2022 7:38 AM SERVICES PROGRAM MANAGER): Clinically improved, continue current prescription medications, citalopram. Assessment & Plan (04/25/2022 8:17 PM SERVICES PROGRAM MANAGER): Worsening, will re-start Celexa. Rx sent. Labs [...] weeks Assessment & Plan (06/07/2022 7:37 AM SERVICES PROGRAM MANAGER): Stable. Cont. Current prescription medications, citalopram. Assessment & Plan (04/25/2022 8:16 PM SERVICES PROGRAM MANAGER): Worsening, will re-start Celexa. Rx sent. Labs [...] experiencing increased chin hair -follow up with IT SECURITY CONSULTING DIRECTOR Vitamin D deficiency 09/27/2020 Estimated Date of [...] - 09/21/2024 11:59 PM CDT Hospital Encounter [facility] Outpatient Health - Ultrasound [address] [place] [address], 7th Floor, [address] [place] [address] Supervision of high-risk , unspecified trimester Discharge Disposition: Discharge to home or self care 09/07/2024 12:42 PM CDT - 09/07/2024 11:59 PM CDT Hospital Encounter [facility] [address] [place] [address] Supervision of high-risk , unspecified trimester Discharge Disposition: Discharge to home or self care 09/07/2024 10:30 AM CDT Office Visit [facility] Maternal- Medicine [address] [place] [address] 7th Floor [address] [place] [phone] Chronic hypertension affecting (Primary Dx); Supervision of high-risk , unspecified trimester; AMA (advanced maternal age) primigravida 35+, second trimester; Concern for short cervix 09/07/2024 9:30 AM CDT - 09/07/2024 11:59 PM CDT Hospital Encounter [facility] Outpatient Health - Ultrasound [address] [place] [address], 7th Floor, [address] [place] [address] Supervision of high-risk , unspecified trimester Discharge Disposition: Discharge to home or self care 08/24/2024 Telephone [facility] Obstetrics and Gynecology [address] [place] [id number] [employer] from Last 3 Months Immunizations [...] Obesity, cHTN Requesting Provider: LIDIA Nye Dear CUSTOMER CARE TEAM COACH Deepika Kilpatrick, We had the pleasure of [...] No Intellectual disability or Fragile X: No [place] disease: No Other defects or genetic disorders: No Allergies Allergen Reactions Influenza Virus Vaccines Shortness of breath Lisinopril Angioedema Amlodipine Edema Grass Pollen-Perennial [place], Standard Sneezing Metformin Diarrhea Tree Nut Itching [...] file 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 [] Repeat CL in 2 weeks Allen (Advanced Maternal Age) Primigravida 35+, Second Trimester [...] consult only, [] Co-management vs. [] Full [facility] Care; [] Red Team [] Blue Team Referring Provider: Deepika Kilpatrick [facility]) [phone] [] [employer] or Medicare Insurance [x] Dating Criteria: [place] [...] [] MOC: [] Method of feeding: [] Manager Architecture (specifically which provider): [] PP Depression Discussed: [...] documented assessment and plan. Caprice Arellano MD [facility] Fellow Cosigned by Lana Healy MD at 09/08/2024 9:23 PM CDT Associated attestation - Lana Healy MD - 09/08/2024 9:23 PM CDT Attending Attestation It was my pleasure to see your patient today with our Maternal Medicine Fellow. I have personally seen and evaluated the patient, reviewed the documentation, and agree with the fellow's assessment and plan. Lana Healy MD Nailing Machine Operator Division of Maternal Medicine Progress [...] current clinical standards) Organism (CLINICALLY INSIGNIFICANT GROWTH [facility] Urine, clean voided 09/07/2024 2:27 PM CDT 09/07/2024 2:51 PM CDT Narrative [facility] - 09/08/2024 4:21 PM CDT Testing performed by [facility] Microbiology Laboratory ([phone]) Lana Healy MD LAB MICROBIOLOGY - GENERAL ORDERABLES Final Result Performing Organization Address [facility] Co de Phone Number [facility] Department [place] [address] * Urinalysis reflex to microscopic (09/07/2024 12:42 PM CDT) Color, ur Yellow Yellow Clarity, ur Clear Clear [facility] Specific gravity, ur 1.021 1.003 - 1.030 [facility] pH, urine 6.5 [facility] Comment: Interpretive Data U rine pH is affected by diet, medications, systemic acid-base disturbances, and renal tubular function. pH may affect urinary stone formation. For example, urine pH below 6.0 may help reduce the tendency for calcium phosphate stones and pH greater than 6.0 may reduce the tendency for uric acid stone formation. Source: [facility] Current Interpretive Data was last revised on 2017 Protein, ur ql Trace Negative [facility] Glucose, ur ql Negative Negative [facility] Ketones, ur Negative Negative [facility] Bilirubin, ur Negative Negative [facility] Blood, ur Negative Negative [facility] Urobilinogen, ur <2.0 <2.0 mg/dL [facility] Nitrite, ur Negative Negative [facility] Leukocyte esterase, ur Negative Negative [facility] UA reflex comment Reflex conditions for microscopic UA not met. [facility] Urine 09/07/2024 12:4 2 PM CDT 09/07/2024 2:29 PM CDT Lana Healy MD LAB URINE ORDERABLES Final Result Performing Organization Address City/[facility]/ZIP Co de Phone Number [facility] Department [place] [address] * Protein / creatinine ratio, urine, random (09/07/2024 12:42 PM CDT) Pathologist [facility] Protein, ur, quant 18.5 mg/dL Comment: Interpretive Data No reference range established. Current interpretive data was last revised 2018. Creatinine Ur 269.5 mg/dL [facility] Comment: Interpretive Data No reference range established. Current interpretive data was last revised 2018. Protein/creatinin e ratio 68.6 0.0 - 180.0 mg/g CR [facility] Urine 09/07/2024 12:4 2 PM CDT 09/07/2024 4:03 PM CDT us Lana Healy MD LAB URINE ORDERABLES Final Result Performing Organization Address City/State/[facility] Co de Phone Number [facility] Department [place] [address] * US Ob Detail Anatomy Single Or First Gestation (09/07/2024 9:49 AM CDT) Pathologist [facility] Fetus# Fetus1 VIEWPOINT Estimated Weight 341 g&grams [...] Nonreactive Nonreactive , Invalid Blood Deepika Kilpatrick CUSTOMER CARE TEAM COACH LAB MICROBIOLOGY - GENERAL OR DERABLES Final Result * SMA carrier screen (07/14/2024) SCRIBED SMA negative Result [facility] Deepika Kilpatrick LAB GENETIC TESTING Final Res ult * Hemoglobin analysis by electrophoresis (07/14/2024) Scribed Hemoglobin Electrophoresis Normal Blood Result [facility] Deepika Kilpatrick LAB BLOOD ORDERABLES Final Re sult * Hepatitis C antibody Blood (07/14/2024) SCRIBED HCV ab non-reacti ve Blood Result [facility] Deepika Kilpatrick NP LAB MICROBIOLOGY - GENERAL OR DERABLES Final Result * Cystic fibrosis diagnostic study (07/14/2024) SCRIBED CF negative Blood Result [facility] Deepika Kilpatrick LAB BLOOD ORDERABLES Final Re sult * ABO/Rh (07/14/2024) SCRIBED ABO/Rh AB+ Blood Result [facility] Deepika Kilpatrick LAB BLOOD BANK TEST ORDERABLE S Final Result * Rubella IgG antibody Blood (07/14/2024) Rubella IgG Scribed Immune Blood Deepika Kilpatrick NP LAB MICROBIOLOGY - GENERAL OR DERABLES Final Result * RPR Blood (07/14/2024) [facility] SCRIBED RPR Non-Reacti ve Non-Reacti ve Blood Deepika Kilpatrick NP LAB MICROBIOLOGY - GENERAL OR DERABLES Final Result * Hepatitis B Surface Antigen Blood (07/14/2024) Pathologist [facility] SCRIBED HBsAg Nonreactive Nonreactive , Invalid Blood Deepika Kilpatrick NP LAB MICROBIOLOGY - GENERAL OR DERABLES Final Result * CBC without differential (07/14/2024) [facility] Hct 40.8 Hgb 13.3 Plt 293 Blood Deepika Kilpatrick NP LAB BLOOD ORDERABLES Final Re sult * Antibody screen (07/14/2024) [facility] SCRIBED Indirect Antiglobulin negative Blood Result [facility] Deepika Kilpatrick NP LAB BLOOD BANK TEST ORDERABLE S Final Result * Chlamydia trachomatis culture (07/14/2024) [facility] SCRIBED Chlamydia culture negative Deepika Kilpatrick NP LAB MICROBIOLOGY - GENERAL OR DERABLES Final Result * Urine culture (07/14/2024) [facility] SCRIBED Urine culture no growth Deepika Kilpatrick NP LAB MICROBIOLOGY - GENERAL OR DERABLES Final Result * N. gonorrhoeae culture (07/14/2024) [facility] SCRIBED Gonorrhea culture negative Result [facility] Deepika Kilpatrick NP LAB MICROBIOLOGY - GENERAL OR DERABLES Final Result * Varicella Zoster IgG antibody Blood (07/14/2024) SCRIBED Varicella Zoster, IgG Positive [facility] MICRO[facility]OLOGY - GENERAL OR DERABLES Final Result * Hemoglobin A1c (07/14/2024) SCRIBED Hemoglobin A1c 5.0 % Blood [facility]LOOD ORDERABLES Final Re sult * Pap and High Risk HPV, reflex to Genotyping (10/04/2022 8:56 AM CDT) Pap test 10/04/2022 8:56 AM CDT 10/04/2022 8:56 AM CDT Narrative 10/08/2022 1:54 PM CDT [facility] Department of Pathology [address] [place] [address] Final Report with Addendum Note to Patients: [...] the details. Patient Name: DEBORAH MOODY Address: [address] [place] [address] Gender: F : 1990 (Age: 32) Service: Location: N : [id number] [facility] #: [id number] Patient Type: SPECIMEN Taken: 10/04/2022 Received: 10/04/2022 [...] determined by the Surgical Pathology Department at [facility] as part of an ongoing corporate quality assurance manager program and in compliance with federally mandated [...] characteristics determined by the Surgical Pathology Department [facility]. It has not been cleared or approved by the U. S. Food and Drug Administration. Patricia Mandujano MD LAB CYTOLOGY ORDERA BLES Final Result from Last 3 Months or Most Recently Relevant to Health Maintenance Insurance [employer] Address: [facility] [id number] [place] [address] [employer] PREFERRED [employer] [place] HMO/POS [employer] [facility] HMO/POS Care Teams Supervisor Plastic Sheets Relationship Specialty Start Date End Date Lana Hall NP [address] [facility] [address] [place] [address] PCP - General Family Medicine 10/14/23 Patricia Mandujano MD Consulting Physician Obstetrics and Gynecology 06/05/22
--- OUTSIDE RECORDS SUMMARY | 2024-10-03 10:42 | XMS_ITS | Clinical Summary ---
Author Organization [facility] Address [address] [place] [address] Care Team Providers Care Belt Polisher Name Role Phone Unavailable Primary Care Provider Unavailabl e Source Comments [facility],non-owned Affiliates and Associated Physician Practices is amultiple site organization consisting of ambulatory clinics and hospital sitesin [place], [place], [place] and [place]. This disclosure is being madepursuant to the Care Everywhere program and may not contain all information available regarding this patient. Last updated 18.[facility] Encounters Date Type Department Care Team Description 08/18/2024 Telephone [facility] Women's Health Maternal & Care [address] [place] [address] Suzette Villanueva Appointment from Last 3 Months [...]
[2024-10-03] MEDS: ACETAMINOPHEN 325 MG TABLET 650 MG PO (11:36)
[2024-10-03] MEDS: IBUPROFEN 600 MG TABLET PO (11:36)
[2024-10-03 11:37] VITALS: BP 135/93; PULSE 93; RESP 15; O2SAT 100
[2024-10-03 11:56] VITALS: BP 143/99; PULSE 96; RESP 16; TEMP 36.6; O2SAT 100
== END 2024-10-03 11:58 | disposition home or self-care (01) ==
PROVIDERS: Emergency Provider Emergency Medicine; PCP Nurse Practitioner Family
DX: S46.011A Strain of muscle(s) and tendon(s) of the rotator cuff of right shoulder, initial encounter (principal); W01.190A Fall on same level from slipping, tripping and stumbling with subsequent striking against furniture, initial encounter
CPT/HCPCS: 73030; 99283; A9270